=== PATIENT | male | born 1950 | race Caucasian/White ===

== ENCOUNTER → 2016-11-19 | Outpatient (CLI) | payer MEDICARE, OTHER ==
[2016-11-19 08:41] LABS: CHLORIDE,CL 107 mmol/L (98-110); SODIUM,NA 141 mmol/L (136-146)
== END ==
LOC: MW.CHFP 07:48
PROVIDERS: ATTEND Emergency Medicine
DX: I10 Essential (primary) hypertension (principal); E78.00 Pure hypercholesterolemia, unspecified; Z12.5 Encounter for screening for malignant neoplasm of prostate; D12.6 Benign neoplasm of colon, unspecified; Z23 Encounter for immunization
CPT/HCPCS: 36415; 80053; 80061; 90732; 99214; G0009; G0103

== ENCOUNTER → 2016-12-05 | Outpatient (CLI) | payer MEDICARE, OTHER | LOC: MW.CHGS 08:00 | PROVIDERS: ATTEND Surgery | DX: D12.6 Benign neoplasm of colon, unspecified (principal); Z86.010 Personal history of colon polyps; K57.30 Diverticulosis of large intestine without perforation or abscess without bleeding; I10 Essential (primary) hypertension | CPT/HCPCS: 99214 ==

== ENCOUNTER 2017-01-11 08:15 | Day surgery (SDC) | payer MEDICARE, OTHER ==
[~2017-01-11 08:15] MED LIST: Lactated Ringers 1,000 ML IV SCH; Midazolam 1 MG/ML 2 ML SDV ONE; Propofol 200 MG/20 ML SDV ONE; fentaNYL 100 MCG/2 ML SDV ONE
--- NOTE | 2017-01-11 08:52 | PCM.PREANE ---
Preanesthetic Assessment - Anesthesia/Transfusion/Family Hx Anesthesia History: Prior Anesthesia Without Reaction Family History of Anesthesia Reaction: No Transfusion History: No Prior Transfusion(s) - Review of Systems General: No Symptoms Pulmonary: No Symptoms Cardiovascular: No Symptoms Gastrointestinal: No symptoms Neurological: No Symptoms Other: Reports: None - Physical Assessment NPO Status Date: 01/10/17 O2 Sat by Pulse Oximetry: 97 Respiratory Rate: 16 Vital Signs: Last Vital Signs Temp 36.4 C 01/11/17 08:36 Pulse Resp 16 01/11/17 08:36 BP 143/79 H 01/11/17 08:36 Pulse Ox 97 01/11/17 08:36 Height: 1.7 m Weight: 96.162 kg ASA Class: 2 Mental Status: Alert & Oriented x3 Airway Class: Mallampati = 1 Dentition: Reports: Normal Dentition ROM/Head Extension: Full Lungs: Clear to auscultation, Normal respiratory effort Cardiovascular: Regular Rate, Regular Rhythm - Allergies Allergies/Adverse Reactions: Allergies Allergy/AdvReac Type Severity Reaction Status Date / Time No Known Allergies Allergy Verified 01/09/17 11:53 - Anesthesia Plan Pre-Op Medication Ordered: None - Acknowledgements Anesthesia Type Planned: MAC Pt an Appropriate Candidate for the Planned Anesthesia: Yes Alternatives and Risks of Anesthesia Discussed w Pt/Guardian: Yes Pt/Guardian Understands and Agrees with Anesthesia Plan: Yes Additional Comments: problem list: htn, hld PreAnesthesia Questionnaire Other HEENT History: wears glasses Cardiovascular History: Reports: High Cholesterol, Hypertension Respiratory History: Reports: None Gastrointestinal History: Reports: Colon Polyp, Diverticulosis Genitourinary History: Reports: None Musculoskeletal History: Reports: Arthritis Other Musculoskeletal History: hands Neurological History: Reports: None Psychiatric History: Reports: Depression Endocrine/Metabolic History: Reports: Obesity/BMI 30+ Hematologic History: Reports: None Immunologic History: Reports: None Oncologic (Cancer) History: Reports: None Dermatologic History: Reports: None - Past Surgical History Head Surgeries/Procedures: Reports: None HEENT Surgical History: Reports: None Cardiovascular Surgical History: Reports: None Respiratory Surgical History: Reports: None GI Surgical History: Reports: Colonoscopy, Hernia, Inguinal Male Surgical History: Reports: None Endocrine Surgical History: Reports: None Neurological Surgical History: Reports: None Musculoskeletal Surgical History: Reports: None Oncologic Surgical History: Reports: None Dermatological Surgical History: Reports: None - SUBSTANCE USE Smoking Status *Q: Never Smoker Recreational Drug Use History: No - HOME MEDS Home Medications: Home Meds Ascorbic Acid [Vitamin C] 1,000 mg PO DAILY 03/16/15 [History] Aspirin [[place] Aspirin] 81 mg PO DAILY 03/16/15 [History] Cyanocobalamin (Vitamin B12) [Vitamin B12] 1,000 mg PO DAILY 03/16/15 [History] Fish Oil/[place]-3 Fatty Acids [Fish Oil 1,000 MG] 1,000 mg PO BID 03/16/15 [ History] Folic Acid 800 mcg PO DAILY 03/16/15 [History] Lisinopril 10 mg PO DAILY 03/16/15 [History] Multivitamin [Multivitamins] 1 tab PO DAILY 03/16/15 [History] Sertraline HCl 100 mg PO DAILY 03/16/15 [History] Simvastatin [Zocor] 20 mg PO BEDTIME 03/16/15 [History] Vitamin E 400 units PO DAILY 03/16/15 [History] - CURRENT (IN HOUSE) MEDS Current Meds: Current Medications Lactated Ringer's (Ringers, Lactated) 1,000 mls @ 125 mls/hr IV ASDIRECTED RIVKA Last Admin: 01/11/17 08:38 Dose: 125 mls/hr Discontinued Medications Fentanyl (Sublimaze) Confirm Administered Dose 100 mcg .ROUTE .STK-MED ONE Stop: 01/11/17 06:59 Midazolam HCl (Versed 1 Mg/Ml) Confirm Administered Dose 2 mg .ROUTE .STK-MED ONE Stop: 01/11/17 06:59 Propofol (Diprivan 20 Ml) Confirm Administered Dose 400 mg .ROUTE .STK-MED ONE Stop: 01/11/17 06:59
--- NOTE | 2017-01-11 10:43 | PCM.OPNOTE ---
- General Post-Op/Procedure Note Date of Surgery/Procedure: 01/11/17 Operative Procedure(s): Colonoscopy Pre Op Diagnosis: Personal history of colon polyps Post-Op Diagnosis: Sigmoid diverticulosis Anesthesia Technique: MAC (ASA II) Primary Surgeon: Marcio London Condition: Good Free Text/Narrative:: Dictation [id number]
[2017-01-11] MEDS ORDERED: Lactated Ringers 1,000 ML IV SCH (10:45)
--- NOTE | 2017-01-11 10:51 | PCM.POSTAN ---
POST ANESTHESIA ASSESSMENT - MENTAL STATUS Mental Status: alert, oriented - RESPIRATORY Respiratory Status: respiratory rate WNL, airway patent, O2 saturation stable - CARDIOVASCULAR CV Status: pulse rate WNL, blood pressure stable - GASTROINTESTINAL GI Status: no symptoms - POST OP HYDRATION Hydration Status: adequate & stable
--- NOTE | 2017-01-11 11:03 | PCM48HPAN ---
Post Anesthesia Note - EVALUATION WITHIN 48HRS OF ANESTHETIC Vital Signs in Normal Range: Yes Patient Participated in Evaluation: Yes Respiratory Function Stable: Yes Airway Patent: Yes Cardiovascular Function Stable: Yes Hydration Status Stable: Yes Pain Control Satisfactory: Yes Nausea and Vomiting Control Satisfactory: Yes Mental Status Recovered: Yes
--- NOTE | 2017-01-11 12:17 | OR ---
SURGEON: Marcio London M.D. DATE OF PROCEDURE: 01/11/2017 OPERATION PERFORMED: Colonoscopy. ANESTHESIA: MAC. ASA CLASSIFICATION: II. PREOPERATIVE DIAGNOSIS: Personal history of colon polyps. POSTOPERATIVE DIAGNOSIS: Sigmoid diverticulosis. DESCRIPTION OF PROCEDURE: The patient was taken to the endoscopy room and positioned on the endoscopy table in the left lateral decubitus position. Time-out was called for appropriate identification of the patient and procedure. Monitored anesthesia care was provided. The colonoscope was inserted into the rectum and advanced with minimal difficulty to the cecum where the colonoscope was retroflexed to visualize the ascending colon from below. The colonoscope was then straightened and slowly withdrawn. The cecum, ascending colon, hepatic flexure, transverse colon, splenic flexure, and descending colon showed no tumors, polyps, diverticula, angiodysplasia, or evidence of inflammatory bowel disease. Sigmoid colon demonstrates moderate sigmoid diverticulosis. No stricture, spasm, or bleeding was noted. No polyps were encountered in the sigmoid colon. The colonoscope was withdrawn to the rectum and retroflexed to visualize the anal orifice from above. No tumors, polyps, or acute hemorrhoidal changes were noted. The colonoscope was straightened into the rectum, aspirated, and the colonoscope removed. The patient tolerated the procedure well and was taken to recovery room in stable condition. DANIELA / KATINA /[id number]
[2017-01-11 13:05] VITALS: BP 116/50
== END 2017-01-11 11:40 | disposition home or self-care (01) ==
LOC: MW.SDS 08:15
PROVIDERS: ATTEND Surgery
PROC: 0DJD8ZZ Inspection of Lower Intestinal Tract, Via Natural or Artificial Opening Endoscopic (ICD-10-PCS; principal; 2017-01-11)
DX: Z12.11 Encounter for screening for malignant neoplasm of colon (principal); K57.30 Diverticulosis of large intestine without perforation or abscess without bleeding; I10 Essential (primary) hypertension; E78.00 Pure hypercholesterolemia, unspecified; M19.90 Unspecified osteoarthritis, unspecified site; F32.9 Major depressive disorder, single episode, unspecified; Z86.010 Personal history of colon polyps; Z79.82 Long term (current) use of aspirin; Z79.899 Other long term (current) drug therapy; Z98.890 Other specified postprocedural states
CPT/HCPCS: G0105; J2250; J3010; J7120; J2704

== ENCOUNTER 2017-06-19 06:32 | Day surgery (SDC) | payer MEDICARE, OTHER ==
[~2017-06-19 06:32] MED LIST changes: -Midazolam 1 MG/ML 2 ML SDV ONE; -Propofol 200 MG/20 ML SDV ONE; +ceFAZolin 2 GM in Premix Bag 1 BAG IV SCH; -fentaNYL 100 MCG/2 ML SDV ONE
[2017-06-19] MEDS ORDERED: fentaNYL 100 MCG/2 ML SDV IVPUSH ONE (07:30)
[2017-06-19] MEDS ORDERED: fentaNYL 100 MCG/2 ML SDV ONE (07:35)
[2017-06-19] MEDS ORDERED: Succinylcholine/Normal Saline 200 MG/10 ML Syringe ONE (07:40)
[2017-06-19] MEDS ORDERED: Midazolam 1 MG/ML 2 ML SDV ONE (07:40)
[2017-06-19] MEDS ORDERED: Ondansetron 4 MG/2 ML SDV ONE (07:40)
[2017-06-19] MEDS ORDERED: diphenhydrAMINE 50 MG/ML SDV ONE (07:40)
[2017-06-19] MEDS ORDERED: Propofol 200 MG/20 ML SDV ONE (07:40)
[2017-06-19] MEDS ORDERED: Rocuronium 10 MG/ML 10 ML Syringe ONE (07:40)
[2017-06-19] MEDS ORDERED: Dexamethasone 4 MG/ML 5 ML MDV ONE (07:40)
[2017-06-19] MEDS ORDERED: fentaNYL 250 MCG/5 ML SDV ONE (07:40)
[2017-06-19] MEDS ORDERED: Lidocaine 2% 5 ML SDV ONE (07:40)
[2017-06-19] MEDS ORDERED: Mineral Oil/Petrolatum Ophth Oint 3.5 GM Tube ONE (07:43)
[2017-06-19] MEDS ORDERED: Acetaminophen/HYDROcodone 325-10 MG Tab PO PRN (08:00)
[2017-06-19] MEDS ORDERED: Ketorolac 10 MG Tab PO PRN (08:00)
[2017-06-19] MEDS ORDERED: ePHEDrine 50 MG/ML SDV ONE (08:25)
[2017-06-19] MEDS ORDERED: Phenylephrine 1% 10 MG/ML SDV ONE (08:26)
[2017-06-19] MEDS ORDERED: HYDROmorphone 2 MG/ML Syringe ONE (08:35)
[2017-06-19] MEDS ORDERED: Bupivacaine 0.5% 30 ML SDV ONE (09:43)
[2017-06-19] MEDS ORDERED: Bupivacaine 25%/EPINEPHrine/PF 30 ML ONE (09:43)
--- NOTE | 2017-06-19 09:51 | PCM.OPNOTE ---
- General Post-Op/Procedure Note Date of Surgery/Procedure: 06/19/17 Operative Procedure(s): L shoulder arthroscopy with SAD, extensive synovectomy including debridement of deg ant/post labral tear, biceps tenotomy, and RTCR Post-Op Diagnosis: L shoulder impingement, biceps tendonopathy, degenerative ant /post labral tear, RTC tear Anesthesia Technique: General ET Tube, Regional Block Primary Surgeon: Armida Reid Caving Guide: Leeanne Blackman in mLs: 10 Condition: Good Free Text/Narrative:: #
--- NOTE | 2017-06-19 10:24 | PCM.PREANE ---
Preanesthetic Assessment - Procedure Proposed Procedure: Left shoulder surgery - Anesthesia/Transfusion/Family Hx Anesthesia History: Prior Anesthesia Without Reaction Family History of Anesthesia Reaction: No Transfusion History: No Prior Transfusion(s) Intubation History: Unknown - Review of Systems General: Other (pain left shoulder) Pulmonary: No Symptoms Cardiovascular: Other (hypertension) Gastrointestinal: No Symptoms, Other (hx diverticulosis) Neurological: Other (pain in shoulder (L)) - Physical Assessment NPO Status Date: 06/18/17 NPO Status Time: 21:00 O2 Sat by Pulse Oximetry: 95 Respiratory Rate: 16 Vital Signs: Last Vital Signs Temp 98.2 F 06/19/17 07:25 Pulse 70 06/19/17 07:25 Resp 16 06/19/17 07:25 BP 134/79 06/19/17 07:25 Pulse Ox 95 06/19/17 07:25 Height: 5 ft 7 in Weight: 208 lb ASA Class: 2 Mental Status: Alert & Oriented x3 Airway Class: Mallampati = 1 Dentition: Reports: Normal Dentition Thyro-Mental Finger Breadths: 3 Mouth Opening Finger Breadths: 3 ROM/Head Extension: Limited/Partial Lungs: Clear to Auscultation, Normal Respiratory Effort Cardiovascular: Regular Rate, Regular Rhythm, No Murmurs - Allergies Allergies/Adverse Reactions: Allergies Allergy/AdvReac Type Severity Reaction Status Date / Time No Known Allergies Allergy Verified 06/18/17 10:32 - Blood Blood Available: No Product(s) Available: None - Anesthesia Plan Pre-Op Medication Ordered: Other (fentanyl for pain described) - Acknowledgements Anesthesia Type Planned: General Anesthesia, Regional Block (discussed probable interscalene block with eletrostim locater, agreed) Pt an Appropriate Candidate for the Planned Anesthesia: Yes Alternatives and Risks of Anesthesia Discussed w Pt/Guardian: Yes Pt/Guardian Understands and Agrees with Anesthesia Plan: Yes Additional Comments: present with exam interview and consent. PreAnesthesia Questionnaire Other HEENT History: wearsw glasses Cardiovascular History: Reports: Hypertension Respiratory History: Reports: None Gastrointestinal History: Reports: Colon Polyp, Diverticulosis Genitourinary History: Reports: None Musculoskeletal History: Reports: Arthritis Other Musculoskeletal History: hands Neurological History: Reports: None Psychiatric History: Reports: Depression Endocrine/Metabolic History: Reports: Obesity/BMI 30+ Hematologic History: Reports: None Immunologic History: Reports: None Oncologic (Cancer) History: Reports: None Dermatologic History: Reports: None - Past Surgical History Head Surgeries/Procedures: Reports: None HEENT Surgical History: Reports: None Cardiovascular Surgical History: Reports: None Respiratory Surgical History: Reports: None GI Surgical History: Reports: Colonoscopy, Hernia, Inguinal Male Surgical History: Reports: None Endocrine Surgical History: Reports: None Neurological Surgical History: Reports: None Musculoskeletal Surgical History: Reports: None Oncologic Surgical History: Reports: None Dermatological Surgical History: Reports: None - SUBSTANCE USE Smoking Status *Q: Never Smoker Other Tobacco Use Within Last Twelve Months: "cigar when I golf" Recreational Drug Use History: No - HOME MEDS Home Medications: Home Meds Ascorbic Acid [Vitamin C] 1,000 mg PO DAILY 03/16/15 [History] Aspirin [[place] Aspirin] 81 mg PO DAILY 03/16/15 [History] Cyanocobalamin (Vitamin B12) [Vitamin B12] 1,000 mg PO DAILY 03/16/15 [History] Fish Oil/[place]-3 Fatty Acids [Fish Oil 1,000 MG] 1,000 mg PO BID 03/16/15 [ History] Folic Acid 800 mcg PO DAILY 03/16/15 [History] Lisinopril 10 mg PO DAILY 03/16/15 [History] Multivitamin [Multivitamins] 1 tab PO DAILY 03/16/15 [History] Sertraline HCl 100 mg PO DAILY 03/16/15 [History] Simvastatin [Zocor] 20 mg PO BEDTIME 03/16/15 [History] Vitamin E 400 units PO DAILY 03/16/15 [History] Acetaminophen/HYDROcodone [[place] 325-10 MG] 1 - 2 tab PO Q4H PRN #80 tablet 09/04 [Rx] Ketorolac [Toradol] 10 mg PO Q6H #20 tablet 06/19/17 [Rx] - CURRENT (IN HOUSE) MEDS Current Meds: Current Medications Hydrocodone Bitart/Acetaminophen ([place] 325-10 Mg) 1 - 2 tab PO Q4H PRN PRN Reason: Pain Cefazolin Sodium/Dextrose 2 gm (/ Premix) 50 mls @ 100 mls/hr IV ONCALL RIVKA Lactated Ringer's (Ringers, Lactated) 1,000 mls @ 100 mls/hr IV ASDIRECTED RIVKA Ketorolac Tromethamine (Toradol) 10 mg PO Q6H PRN PRN Reason: Pain Stop: 06/24/17 08:01 Discontinued Medications Bupivacaine HCl (Marcaine 0.5%) Confirm Administered Dose 30 ml .ROUTE .STK-MED ONE Stop: 06/19/17 09:44 Dexamethasone (Dexamethasone) Confirm Administered Dose 20 mg .ROUTE .STK-MED ONE Stop: 06/19/17 07:41 Diphenhydramine HCl (Benadryl) Confirm Administered Dose 50 mg .ROUTE .STK-MED ONE Stop: 06/19/17 07:41 Ephedrine Sulfate (Ephedrine Sulfate) Confirm Administered Dose 50 mg .ROUTE .STK-MED ONE Stop: 06/19/17 08:26 Fentanyl (Sublimaze) 50 mcg IVPUSH ONETIME ONE Stop: 06/19/17 07:31 Fentanyl (Sublimaze) Confirm Administered Dose 100 mcg .ROUTE .STK-MED ONE Stop: 06/19/17 07:36 Fentanyl (Sublimaze) Confirm Administered Dose 250 mcg .ROUTE .STK-MED ONE Stop: 06/19/17 07:41 Hydromorphone HCl (Dilaudid) Confirm Administered Dose 2 mg .ROUTE .STK-MED ONE Stop: 06/19/17 08:36 Acetaminophen (Ofirmev) Confirm Administered Dose 100 mls @ as directed IV .STK- MED ONE Stop: 06/19/17 07:55 Bupivacaine HCl/Epinephrine Bitart (Sensorc Mpf 0.25%-Epi [id number]) Confirm Administered Dose 30 mls @ as directed .ROUTE .STK-MED ONE Stop: 06/19/17 09:44 Lidocaine (Xylocaine-Mpf 2%) Confirm Administered Dose 5 ml .ROUTE .STK-MED ONE Stop: 06/19/17 07:41 Midazolam HCl (Versed 1 Mg/Ml) Confirm Administered Dose 2 mg .ROUTE .STK-MED ONE Stop: 06/19/17 07:41 Mineral Oil/White Petrolatum ([place]-Lube S.O.P Oint) Confirm Administered Dose 3.5 gm .ROUTE .STK-MED ONE Stop: 06/19/17 07:44 Ondansetron HCl (Zofran) Confirm Administered Dose 4 mg .ROUTE .STK-MED ONE Stop: 06/19/17 07:41 Phenylephrine HCl ([place]-Synephrine) Confirm Administered Dose 10 mg .ROUTE .STK- MED ONE Stop: 06/19/17 08:27 Propofol (Diprivan 20 Ml) Confirm Administered Dose 200 mg .ROUTE .STK-MED ONE Stop: 06/19/17 07:41 Rocuronium [place] (Zemuron) Confirm Administered Dose 100 mg .ROUTE .STK-MED ONE Stop: 06/19/17 07:41 Succinylcholine Chloride (Succinylcholine In Ns Pf) Confirm Administered Dose 200 mg .ROUTE .STK-MED ONE Stop: 06/19/17 07:41
--- NOTE | 2017-06-19 10:27 | PCM.SN ---
- Free Text/Narrative Note: Interscalene on left blocked with 0.375% marcaine(37 ml). done in the emergence period under sterile conditions in OR. electrostim twitch elicited, injection done with negative aspiration (also negative for needle placement). emergence then completed and taken to PAR.
--- NOTE | 2017-06-19 11:08 | PCM.POSTAN ---
POST ANESTHESIA ASSESSMENT - MENTAL STATUS Mental Status: Alert, Oriented - RESPIRATORY Respiratory Status: Respiratory Rate WNL, Airway Patent, O2 Saturation Stable - CARDIOVASCULAR CV Status: Pulse Rate WNL, Blood Pressure Stable - GASTROINTESTINAL GI Status: No Symptoms - PAIN Pain Score: 0 (interscalene block active) - POST OP HYDRATION Hydration Status: Adequate & Stable
--- NOTE | 2017-06-19 12:37 | PCM48HPAN ---
Post Anesthesia Note - EVALUATION WITHIN 48HRS OF ANESTHETIC Vital Signs in Normal Range: Yes Patient Participated in Evaluation: Yes Respiratory Function Stable: Yes Airway Patent: Yes Cardiovascular Function Stable: Yes Hydration Status Stable: Yes Pain Control Satisfactory: Yes (remains sleepy with solid interscalene block pain relief) Nausea and Vomiting Control Satisfactory: Yes Mental Status Recovered: Yes - COMMENTS/OBSERVATIONS Free Text/Narrative:: to go home with soon.
[2017-06-19 15:07] VITALS: BP 131/76
--- NOTE | 2017-06-20 13:17 | OR ---
SURGEON: Armida Reid MD DATE OF PROCEDURE: 06/19/2017 PREOPERATIVE DIAGNOSES: 1. Left shoulder impingement syndrome. 2. Left shoulder biceps tendinopathy. 3. Left shoulder rotator cuff tear. POSTOPERATIVE DIAGNOSES: 1. Left shoulder impingement syndrome. 2. Left shoulder biceps tendinopathy. 3. Left shoulder rotator cuff tear. 4. Left shoulder anterior and posterior degenerative labrum tear. PROCEDURE: Left shoulder arthroscopy with: 1. Subacromial decompression with release of coracoacromial ligament and acromioplasty. 2. Extensive synovectomy including biceps tenotomy and debridement of the anterior and posterior labrum. 3. Left shoulder arthroscopic rotator cuff repair. CRITICAL CARE CNS: Leeanne Blackman PA-C. ANESTHESIA: General. Interscalene block was placed at the completion of the procedure. ESTIMATED BLOOD LOSS: 5 mL. TOURNIQUET TIME: 0 minutes. COMPLICATIONS: None. DVT PROPHYLAXIS: PAS boots to bilateral lower extremities. IMPLANTS USED: Two 4.5 mm Arthrex corkscrew anchors ([employer]) and one Arthrex 4.75 SwiveLock anchor ([employer]). BRIEF HISTORY: Mr. London is a 66-year-old male, who sustained a fall on a piano bench. He has had complaint of left shoulder pain since that time. An MRI did confirm a tear of the rotator cuff. Due to his lack of response to conservative treatment, I did recommend surgical intervention. The risks and goals of the procedure were discussed with the patient and were documented preoperatively. He agreed to proceed. DESCRIPTION OF PROCEDURE: The patient was properly identified and brought to the operating room. He was transferred from the OR cart and placed on the operating table in a supine position. General anesthesia was administered. After adequate anesthesia was obtained, the patient was placed into a beach-chair position. Care was taken to pad all bony prominences. His head was secured. The left upper extremity was then prepped in standard fashion using ChloraPrep solution. It was then sterilely draped. A time-out was performed to ensure correct site and procedure. Preoperative antibiotics were given. The surgical site had been marked preoperatively. Bony landmarks were then identified with a marking pen. Approximately 30 mL of normal saline was introduced into the glenohumeral joint. A posterior portal was established. Blunt trocar and cannula were introduced into the glenohumeral joint. Camera, inflow, and outflow were assembled. The biceps was visualized. It was found to be quite degenerative looking with extensive tearing. I did establish an anterior portal. He did have some synovitis in the rotator cuff interval, which was resected. A split tear of the subscapularis was also noted. This was probed. The attachment appeared intact. The tear was gently debrided. No loose bodies were identified in the subscapular recess. The biceps was then further inspected. It was pulled into the joint. The longitudinal splits extended distally into the tendon. I elected to proceed with a biceps tenotomy. This was performed with electrocautery without difficulty. The biceps tendon retracted easily into the bicipital tendon sheath. The attachment site was contoured. I then inspected the labrum. He was found to have degenerative fraying of both the anterior and posterior labrum. Electrocautery was used to resect this to a stable remnant. No further catching was noted. The articular cartilage on both the glenoid and humeral head was intact and showed no evidence of degenerative wear. I then entered the axillary pouch. No loose bodies were identified. Mild synovitis was noted. The arm was then brought into an abducted and externally rotated position. The bare area was noted posteriorly. As I progressed forward, a full-thickness tear of the supraspinatus was noted. The instruments were then removed from the glenohumeral joint. The arm was brought back into a neutral position. I then entered the subacromial space. Again camera, inflow, and outflow were assembled. There was some mild bursitis present in the subacromial space. A lateral portal was established and a subacromial decompression was performed. The coracoacromial ligament was released off the anterior aspect of the acromion. A 5.0 mm ellen was then used to perform an acromioplasty. This was performed without any difficulty. We had good decompression of the space at the completion. The rotator cuff was then inspected. A crescentic tear was noted along the anterior aspect of the supraspinatus. A cuff grasper was used to pull the cuff over. It easily reapproximated to the footprint. A 5.0 mm ellen was then used to perform the acromioplasty. This provided good decompression of the subacromial space. I also used the ellen to roughen the area of attachment just lateral to the articular cartilage. Two corkscrew anchors were then placed in usual fashion. Sutures were passed through the cuff. The cuff appeared quite robust. The sutures were passed in an anterior to posterior fashion and were tied in a posterior to anterior fashion. This provided good reapproximation of the cuff to the bone. The repair site was then probed. There was some lifting of the lateral edge of the rotator cuff and I elected to proceed with a SwiveLock. A 4.75 SwiveLock anchor was placed laterally incorporating the sutures from the repair. This was tapped and screwed into place. The tear was again probed. The sutures provided good compression over the lateral aspect of the cuff repair. Suture ends were then cut. The instruments were removed from the shoulder. A 3- 0 nylon was used to reapproximate the wound edges. Xeroform gauze was placed over the wound and a bulky dressing was applied. He was awakened from his anesthetic. At the completion of the case, he was turned over to Anesthesia for postoperative placement of the interscalene block. MARTHA / KATINA /[id number]
== END 2017-06-19 13:50 | disposition home or self-care (01) ==
LOC: MW.SDS 06:32
PROVIDERS: ATTEND Orthopaedic Surgery
DX: M75.42 Impingement syndrome of left shoulder (principal); M75.22 Bicipital tendinitis, left shoulder; M75.122 Complete rotator cuff tear or rupture of left shoulder, not specified as traumatic; M65.812 Other synovitis and tenosynovitis, left shoulder; S43.492A Other sprain of left shoulder joint, initial encounter; M19.012 Primary osteoarthritis, left shoulder; F32.9 Major depressive disorder, single episode, unspecified; I10 Essential (primary) hypertension; E78.00 Pure hypercholesterolemia, unspecified; E66.9 Obesity, unspecified; Z86.010 Personal history of colon polyps; Z79.82 Long term (current) use of aspirin; Z79.899 Other long term (current) drug therapy; Z98.890 Other specified postprocedural states; Z68.34 Body mass index [BMI] 34.0-34.9, adult
CPT/HCPCS: 29823; 29826; 29827; 88304; C1713; J1100; J1170; J1200; J2250; J2370; J2405; J3010; 01630; 64415; J2704

== ENCOUNTER 2018-12-03 06:48 | Day surgery (SDC) | payer MEDICARE, OTHER ==
[2018-12-03] MEDS ORDERED: Bupivacaine 0.25%/EPINEPHrine 1:200,000 10 ML SDV ONE (07:19)
--- NOTE | 2018-12-03 07:46 | PCM.PREANE ---
Preanesthetic Assessment - Anesthesia/Transfusion/Family Hx Anesthesia History: Prior Anesthesia Without Reaction Family History of Anesthesia Reaction: No Transfusion History: No Prior Transfusion(s) Intubation History: Unknown - Review of Systems General: No Symptoms Pulmonary: No Symptoms Cardiovascular: No Symptoms Gastrointestinal: No Symptoms Neurological: No Symptoms Other: Reports: None - Physical Assessment NPO Status Date: 12/02/18 Height: 5 ft 7 in Weight: 89.358 kg ASA Class: 2 Mental Status: Alert & Oriented x3 Airway Class: Mallampati = 2 Dentition: Reports: Normal Dentition ROM/Head Extension: Full Lungs: Clear to Auscultation, Normal Respiratory Effort Cardiovascular: Regular Rate, Regular Rhythm - Allergies Allergies/Adverse Reactions: Allergies Allergy/AdvReac Type Severity Reaction Status Date / Time No Known Allergies Allergy Verified 12/01/18 11:24 - Blood Blood Available: No - Anesthesia Plan Pre-Op Medication Ordered: None - Acknowledgements Anesthesia Type Planned: MAC Pt an Appropriate Candidate for the Planned Anesthesia: Yes Alternatives and Risks of Anesthesia Discussed w Pt/Guardian: Yes Pt/Guardian Understands and Agrees with Anesthesia Plan: Yes Additional Comments: PMH: htn, hld PLAN: mac PreAnesthesia Questionnaire HEENT History: Reports: Other (See Below) Other HEENT History: wears glasses Cardiovascular History: Reports: High Cholesterol, Hypertension Respiratory History: Reports: None Gastrointestinal History: Reports: Colon Polyp, Diverticulosis Genitourinary History: Reports: None Musculoskeletal History: Reports: Arthritis Other Musculoskeletal History: hands Neurological History: Reports: None Psychiatric History: Reports: Depression Endocrine/Metabolic History: Reports: Obesity/BMI 30+ Hematologic History: Reports: None Immunologic History: Reports: None Oncologic (Cancer) History: Reports: None Dermatologic History: Reports: None - Past Surgical History HEENT Surgical History: Reports: Other (See Below) Other HEENT Surgeries/Procedures: excision of forehead lesion GI Surgical History: Reports: Colonoscopy, Hernia, Inguinal Dermatological Surgical History: Reports: Skin Biopsy - SUBSTANCE USE Smoking Status *Q: Current Some Day Smoker Tobacco Use Within Last Twelve Months: Cigars Recreational Drug Use History: No - HOME MEDS Home Medications: Home Meds Ascorbic Acid [Vitamin C] 1,000 mg PO DAILY 03/16/15 [History] Aspirin [[place] Aspirin EC] 81 mg PO DAILY 03/16/15 [History] Cyanocobalamin (Vitamin B12) [Vitamin B12] 1,000 mcg PO DAILY 03/16/15 [History] Fish Oil/[place]-3 Fatty Acids [Fish Oil 1,000 MG] 1,200 mg PO BID 03/16/15 [ History] Folic Acid 800 mcg PO DAILY 03/16/15 [History] Lisinopril 10 mg PO DAILY 03/16/15 [History] Multivitamin [Multivitamins] 1 tab PO DAILY 03/16/15 [History] Sertraline HCl 100 mg PO DAILY 03/16/15 [History] Simvastatin [Zocor] 20 mg PO BEDTIME 03/16/15 [History] Vitamin E 400 units PO DAILY 03/16/15 [History] Vitamin B6-pyridOXINE 100 mg PO DAILY 11/27/18 [History] - CURRENT (IN HOUSE) MEDS Current Meds: Current Medications Bupivacaine HCl/Epinephrine Bitart (Marcaine 0.25%/Epinephrine 1:200,000) 10 ml INJECT ONETIME ONE Stop: 12/03/18 08:01 Cefazolin Sodium/Dextrose 2 gm (/ Premix) 50 mls @ 100 mls/hr IV ONETIME ONE Stop: 12/03/18 08:29 Lactated Ringer's (Ringers, Lactated) 1,000 mls @ 125 mls/hr IV ASDIRECTED RIVKA Discontinued Medications Bupivacaine HCl/Epinephrine Bitart (Marcaine 0.25%/Epinephrine 1:200,000) Confirm Administered Dose 10 ml .ROUTE .STK-MED ONE Stop: 12/03/18 07:20
[2018-12-03] MEDS ORDERED: Bupivacaine 0.25%/EPINEPHrine 1:200,000 10 ML SDV INJECT ONE (08:00)
[2018-12-03] MEDS ORDERED: Lactated Ringers 1,000 ML IV SCH (08:00)
[2018-12-03] MEDS ORDERED: ceFAZolin 2 GM in Premix Bag 1 BAG IV ONE (08:00)
[2018-12-03] MEDS ORDERED: fentaNYL 100 MCG/2 ML SDV ONE (08:21)
[2018-12-03] MEDS ORDERED: Propofol 200 MG/20 ML SDV ONE (08:21)
[2018-12-03] MEDS ORDERED: Midazolam 1 MG/ML 2 ML SDV ONE (08:46)
[2018-12-03] MEDS ORDERED: ceFAZolin/Dextrose,Iso-Osmotic 2 GM/50 ML Duplex Bag IV ONE (08:47)
[2018-12-03 11:50] VITALS: BP 120/59
--- NOTE | 2018-12-03 12:01 | PCM.POSTAN ---
POST ANESTHESIA ASSESSMENT - MENTAL STATUS Mental Status: Alert, Oriented - RESPIRATORY Respiratory Status: Respiratory Rate WNL, Airway Patent, O2 Saturation Stable - CARDIOVASCULAR CV Status: Pulse Rate WNL, Blood Pressure Stable - GASTROINTESTINAL GI Status: No Symptoms - POST OP HYDRATION Hydration Status: Adequate & Stable
--- NOTE | 2018-12-03 12:02 | PCM48HPAN ---
Post Anesthesia Note - EVALUATION WITHIN 48HRS OF ANESTHETIC Vital Signs in Normal Range: Yes Patient Participated in Evaluation: Yes Respiratory Function Stable: Yes Airway Patent: Yes Cardiovascular Function Stable: Yes Hydration Status Stable: Yes Pain Control Satisfactory: Yes Nausea and Vomiting Control Satisfactory: Yes Mental Status Recovered: Yes Resp Rate: 18
--- NOTE | 2018-12-04 08:15 | PCM.OPNOTE ---
- General Post-Op/Procedure Note Date of Surgery/Procedure: 12/03/18 Operative Procedure(s): reexcision of left forehead lentigo maligna with 0.5cm margins - total size 5x3cm with intermediate repair of 3cm and full thickness skin graft from the left chest 2x1cm to copmlete the closure Pre Op Diagnosis: left forehead lentigo maligna Post-Op Diagnosis: Same Anesthesia Technique: Local, MAC Primary Surgeon: Rossy Quinteros Loading Machine Operator Helper: Melany Stratton Complications: None Condition: Good
--- NOTE | 2018-12-05 08:27 | OR ---
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 PROCEDURES: 1. Revision of left forehead lentigo maligna, 0.5 cm margins, total size of excision is 5 x 3 cm. 2. Intermediate repair 3 cm of this. 3. Full-thickness skin graft in the left chest with 2 x 1 cm to complete the closure. HABILITATION TRAINING SPECIALIST: CRICKET Tinsley. REASON FOR AND ROLE OF HABILITATION TRAINING SPECIALIST: Retraction, prepping, draping, positioning and closure assistance. ANESTHESIA: Local MAC. INDICATIONS: Mr. London is a 68-year-old gentleman seen today in evaluation for left forehead lentigo maligna. Unfortunately, the margins are close, and we discussed the standard treatment for this lesion. Risks and benefits were discussed with him including, but not limited to, bleeding, infection, damage to underlying or overlying structures, possible need for future interventions, and possible scarring. He also understands this has a very high recurrence rate. We did discuss with him treatment options, and he would like to proceed with re- excision. All questions answered. PROCEDURE IN DETAIL: After informed consent was obtained and placed on the chart, the patient was brought to the operating theater and laid in supine position. After adequate 0.5 cm margins were marked around the previous scar, the area was prepped and draped in a normal fashion, and time-out was completed to confirm side and site. After marked, attention was paid to re-excision with 0.5 cm margins for a total length of 5 x 3 cm. Once adequately excised, marked at 12 o'clock position and sent for pathology. Once this was completed, attention was then paid to copious irrigation, meticulous hemostasis, and attempted primary closure. We were able to close approximately 3 cm of this, but unfortunately the central area was far too tight. We had previously discussed with him flap versus graft, and considering the high recurrence of lentigo maligna, I would opt for graft in this situation with rearrangement of tissues. He does understand. The left chest area was prepped in the normal fashion with Betadine. After adequate anesthesia with 0.25% Marcaine with epinephrine, a small elliptical 2 x 1 cm graft was taken to complete the closure. This was placed and sutured using a 5-0 chromic stitch. Once placed, small pressure dressing was placed over the site, and then the patient tolerated the procedure well. All counts and needles were correct at the end of the case. FOLLOWUP INSTRUCTIONS: The patient will see us in approximately 1 week, sooner if any problems, questions, or concerns. He will leave the dressing in place until then. He was given tramadol for pain control as needed. HEGGTHE / MODL /[id number]
== END 2018-12-03 10:50 | disposition home or self-care (01) ==
LOC: MW.SDS 06:48
PROVIDERS: ATTEND Plastic Surgery
DX: D03.39 Melanoma in situ of other parts of face (principal); I10 Essential (primary) hypertension; E78.00 Pure hypercholesterolemia, unspecified; F17.290 Nicotine dependence, other tobacco product, uncomplicated; M19.90 Unspecified osteoarthritis, unspecified site; R73.03 Prediabetes; Z79.82 Long term (current) use of aspirin; Z79.899 Other long term (current) drug therapy
CPT/HCPCS: 11646; 15240; 88305; J0690; J2250; J2704; J3010; J3490; J7120; 00300

== ENCOUNTER 2020-11-10 07:19 | Day surgery (SDC) | payer MEDICARE ==
[~2020-11-10 07:19] MED LIST changes: +Acetaminophen 1,000 MG in Premix Bag 1 BAG IV ONE; +ceFAZolin 2 GM in Premix Bag 1 BAG IV ONE; -ceFAZolin 2 GM in Premix Bag 1 BAG IV SCH
--- NOTE | 2020-11-10 08:09 | PCM.PREANE ---
Preanesthetic Assessment - Anesthesia/Transfusion/Family Hx Anesthesia History: Prior Anesthesia Without Reaction Family History of Anesthesia Reaction: No Transfusion History: No Prior Transfusion(s) Intubation History: Unknown - Review of Systems General: No Symptoms Pulmonary: No Symptoms Cardiovascular: No Symptoms Gastrointestinal: No Symptoms Neurological: No Symptoms Other: Reports: None - Physical Assessment Vital Signs: Last Vital Signs Temp 36.3 C 11/10/20 07:25 Pulse 84 11/10/20 07:25 Resp 16 11/10/20 07:25 BP 130/75 11/10/20 07:25 Pulse Ox 95 11/10/20 07:25 Height: 5 ft 7 in Weight: 96.162 kg ASA Class: 2 Mental Status: Alert & Oriented x3 Airway Class: Mallampati = 2 Dentition: Reports: Normal Dentition Thyro-Mental Finger Breadths: 3 Mouth Opening Finger Breadths: 3 ROM/Head Extension: Full Lungs: Clear to Auscultation, Normal Respiratory Effort Cardiovascular: Regular Rate, Regular Rhythm - Allergies Allergies/Adverse Reactions: Allergies Allergy/AdvReac Type Severity Reaction Status Date / Time No Known Allergies Allergy Verified 11/04/20 09:08 - Blood Blood Available: No - Anesthesia Plan Pre-Op Medication Ordered: None - Acknowledgements Anesthesia Type Planned: General Anesthesia Pt an Appropriate Candidate for the Planned Anesthesia: Yes Alternatives and Risks of Anesthesia Discussed w Pt/Guardian: Yes Pt/Guardian Understands and Agrees with Anesthesia Plan: Yes PreAnesthesia Questionnaire HEENT History: Reports: Other (See Below) Other HEENT History: wears glasses Cardiovascular History: Reports: High Cholesterol, Hypertension Respiratory History: Reports: None Gastrointestinal History: Reports: Colon Polyp, Diverticulosis Genitourinary History: Reports: None Musculoskeletal History: Reports: Arthritis Other Musculoskeletal History: hands Neurological History: Reports: None Psychiatric History: Reports: Depression Endocrine/Metabolic History: Reports: Obesity/BMI 30+ (BMI 33.2), Other (See Below) (prediabetes) Hematologic History: Reports: None Immunologic History: Reports: None Oncologic (Cancer) History: Reports: None Dermatologic History: Reports: None - Past Surgical History Head Surgeries/Procedures: Reports: None HEENT Surgical History: Reports: Other (See Below) Other HEENT Surgeries/Procedures: excision of forehead lesion Cardiovascular Surgical History: Reports: None Respiratory Surgical History: Reports: None GI Surgical History: Reports: Colonoscopy, Hernia, Inguinal Male Surgical History: Reports: None, Vasectomy Endocrine Surgical History: Reports: None Neurological Surgical History: Reports: None Musculoskeletal Surgical History: Reports: None, Shoulder Surgery (left shoulder rotator cuff repair) Oncologic Surgical History: Reports: None Dermatological Surgical History: Reports: Skin Biopsy - SUBSTANCE USE Tobacco Use Status *Q: Current Some Day Tobacco User Tobacco Use Within Last Twelve Months: Cigars Recreational Drug Use History: No - HOME MEDS Home Medications: Home Meds Ascorbic Acid [Vitamin C] 1,000 mg PO DAILY 03/16/15 [History] Aspirin [[place] Aspirin EC] 81 mg PO DAILY 03/16/15 [History] Cyanocobalamin (Vitamin B12) [Vitamin B12] 1,000 mcg PO DAILY 03/16/15 [History] Fish Oil/[place]-3 Fatty Acids [Fish Oil 1,000 MG] 1,200 mg PO BID 03/16/15 [History] Folic Acid 800 mcg PO DAILY 03/16/15 [History] Lisinopril 10 mg PO DAILY 03/16/15 [History] Multivitamin [Multivitamins] 1 tab PO DAILY 03/16/15 [History] Sertraline HCl 100 mg PO DAILY 03/16/15 [History] Simvastatin [Zocor] 20 mg PO BEDTIME 03/16/15 [History] Vitamin E 400 units PO DAILY 03/16/15 [History] Vitamin B6-pyridOXINE 100 mg PO DAILY 11/27/18 [History] - CURRENT (IN HOUSE) MEDS Current Meds: Current Medications Lactated Ringer's (Ringers, Lactated) 1,000 mls @ 125 mls/hr IV ASDIRECTED RIVKA Pregabalin (Pregabalin 75 Mg Cap) 150 mg PO DAILY RIVKA Discontinued Medications Cefazolin Sodium/Dextrose 2 gm (/ Premix) 50 mls @ 100 mls/hr IV ONETIME ONE Stop: 11/09/20 13:44 Acetaminophen 1,000 mg/ Premix 100 mls @ 400 mls/hr IV NOW ONE Stop: 11/09/20 13:32
[2020-11-10] MEDS ORDERED: fentaNYL 250 MCG/5 ML SDV ONE (08:17)
[2020-11-10] MEDS ORDERED: Propofol 200 MG/20 ML SDV ONE (08:17)
[2020-11-10] MEDS ORDERED: Midazolam 1 MG/ML 2 ML SDV ONE (08:17)
[2020-11-10] MEDS ORDERED: Ondansetron 4 MG/2 ML SDV ONE (08:18)
[2020-11-10] MEDS ORDERED: Lidocaine 2% 5 ML SDV ONE (08:18)
[2020-11-10] MEDS ORDERED: Ketorolac 30 MG/ML SDV ONE (08:18)
[2020-11-10] MEDS ORDERED: Rocuronium Bromide 50 MG/5 ML Syringe ONE ×2 (08:18→10:20)
[2020-11-10] MEDS ORDERED: Glycopyrrolate 0.2 MG/ML SDV ONE (08:18)
[2020-11-10] MEDS ORDERED: ceFAZolin 1 GM Vial ONE (08:35)
[2020-11-10] MEDS ORDERED: Sodium Chloride 0.9% 20 ML ONE (08:35)
[2020-11-10] MEDS ORDERED: Bupivacaine 0.5% 30 ML SDV ONE (08:41)
[2020-11-10] MEDS ORDERED: Bupivacaine 25%/EPINEPHrine/PF 0 ML ONE (08:41)
[2020-11-10] MEDS ORDERED: Octyl 2-Cyanoacrylate 1 Tube ONE (08:41)
[2020-11-10] MEDS ORDERED: Pregabalin 75 MG Cap PO SCH (09:00)
[2020-11-10] MEDS ORDERED: fentaNYL 100 MCG/2 ML SDV ONE ×2 (10:03→11:17)
[2020-11-10] MEDS ORDERED: HYDROmorphone 2 MG/ML Syringe IVPUSH PRN (11:29)
[2020-11-10] MEDS ORDERED: Ondansetron 4 MG/2 ML SDV IVPUSH PRN (11:29)
[2020-11-10] MEDS ORDERED: Acetaminophen/HYDROcodone 325-5 MG Tab PO PRN (11:29)
--- NOTE | 2020-11-10 11:29 | PCM.OPNOTE ---
- General Post-Op/Procedure Note Date of Surgery/Procedure: 11/10/20 Operative Procedure(s): Laparoscopic right inguinal hernia repair Findings: large right direct inguinal hernia dictation number [id number] Pre Op Diagnosis: Right inguinal hernia Post-Op Diagnosis: Right direct inguinal hernia Anesthesia Technique: General LMA Primary Surgeon: Sarwat Taylor Pathology: none EBL in mLs: 10 Complications: None Condition: Good
--- NOTE | 2020-11-10 12:16 | PCM.POSTAN ---
POST ANESTHESIA ASSESSMENT - MENTAL STATUS Mental Status: Alert, Oriented - VITAL SIGNS Vital Signs: Last Vital Signs Temp 36.2 C 11/10/20 11:33 Pulse 84 11/10/20 12:07 Resp 12 11/10/20 12:07 BP 115/55 L 11/10/20 12:07 Pulse Ox 95 11/10/20 12:07 - RESPIRATORY Respiratory Status: Respiratory Rate WNL, Airway Patent, O2 Saturation Stable - CARDIOVASCULAR CV Status: Pulse Rate WNL, Blood Pressure Stable - GASTROINTESTINAL GI Status: No Symptoms - PAIN Pain Score: 0 - POST OP HYDRATION Hydration Status: Adequate & Stable - OBSERVATIONS Free Text/Narrative:: No anesthesia problems
[2020-11-10] MEDS ORDERED: Simvastatin 20 MG Tab PO SCH (21:00)
[2020-11-11 07:26] VITALS: BP 134/87; PULSE 75
--- NOTE | 2020-11-11 07:58 | PCM48HPAN ---
Post Anesthesia Note - EVALUATION WITHIN 48HRS OF ANESTHETIC Vital Signs in Normal Range: Yes Patient Participated in Evaluation: Yes Respiratory Function Stable: Yes Airway Patent: Yes Cardiovascular Function Stable: Yes Hydration Status Stable: Yes Pain Control Satisfactory: Yes Nausea and Vomiting Control Satisfactory: Yes Mental Status Recovered: Yes Vital Signs: Last Vital Signs Temp 36.4 C 11/11/20 07:25 Pulse 75 11/11/20 07:25 Resp 20 11/11/20 07:25 BP 134/87 11/11/20 07:25 Pulse Ox 95 11/11/20 07:25 - COMMENTS/OBSERVATIONS Free Text/Narrative:: up walking around ready for discharge
--- NOTE | 2020-11-11 08:05 | OR ---
SURGEON: JOANA JONES MD DATE OF PROCEDURE: 11/10/2020 PREOPERATIVE DIAGNOSIS: Right inguinal hernia. POSTOPERATIVE DIAGNOSIS: Large right direct inguinal hernia. PROCEDURE PERFORMED: Laparoscopic right inguinal hernia repair. PRIMARY SURGEON: Joana Jones MD TRIM MECHANIC: Elbert Forte, [employer] 2nd year assistant professor surgical technology. ESTIMATED BLOOD LOSS: 10 mL. ANESTHESIA: General. SPECIMENS: None. REASON FOR PROCEDURE: The patient is a pleasant 70-year-old gentleman who has had a right inguinal hernia, starting to bother him. The patient originally said that he had a right inguinal hernia, we opened done in the past. However, when the patient was being prepped and was shaved, it looks like the inguinal incision is actually on the left side. I did go over with the patient that we will look on the left side at the same time and see if there are multiple defects that we need to repair on that side also. The patient understands and wishes to proceed. I did go over with the patient risks, goals, and alternatives of procedure. Risks include, but not limited to, need to convert to open, bleeding, mesh infection, infection, injuring to spermatic cord, injury to testicle, injury recurrence, hematoma, seroma, nerve entrapment, chronic pain. The patient understands and wishes to proceed. DESCRIPTION OF PROCEDURE: The patient was brought back to the OR. He was prepped and draped in usual fashion. SCDs were placed. Martin catheter was placed. Preoperative antibiotics were given and anesthesia was provided by the Anesthesia team. Time-out was performed. A curvilinear infraumbilical incision was made. This was carried down to the external rectus sheath, which was incised. The underlying rectus muscle was atraumatically split down to the posterior rectus sheath. Balloon dissecting system was placed into the level of the pubic symphysis and it was begun to insufflate under visualization. However, when we started to insufflate the balloon, we were not in the preperitoneal space, we were actually in the abdominal space, so the balloon dissecting system was removed. We did move to the other side of the curvilinear incision and made another incision in the anterior rectus sheath. The underlying rectus muscle was again atraumatically split down to the posterior rectus sheath. An another balloon dissecting system was placed down to the pubic symphysis and insufflated at this time under direct visualization. At this time, it was in a proper position. The preperitoneal space was made. The balloon dissecting system was removed and a Caleb trocar was placed and insufflation began and the preperitoneal pneumo was established. Now, two 5.0 trocars were placed under direct visualization in the center midline position. The patient did have a fairly large right direct inguinal hernia. This was reduced, appeared to be mainly fat-containing. Now, the lateral wall was then cleared and the spinal cord was inspected. There was a good peritoneal reflection. There did not appear to be any indirect hernia. I did take some time to fully reduce the direct inguinal hernia, this was scarred in, and to make sure there were no other lead or attachments, but this was completely dissected out with a good peritoneal reflection. Now, a large 3DMax MID mesh was placed, laid in good position in the preperitoneal space. It was tacked with absorbable tacker and indurated above the periosteum of Reynaldo's ligament once laterally and once superiorly and make sure not to go into any of the epigastric, vascular, or psoas muscle to avoid any vascular or nerve injury. The mesh was tucked underneath the peritoneal reflection. The mesh did appear to have good coverage even over the larger direct hernia defect. Now, attention was brought over to the left side. There did not appear to be a direct inguinal hernia on this side to be good reflection, so no indirect hernia either, so no mesh was placed on the left side. Preperitoneal pneumo was then released under direct visualization. The 5 mm trocars were removed. The Caleb trocar was removed. The patient did have a little bit of air in his abdominal cavity, so Angiocath was placed to release this pneumoperitoneum. Now, both the anterior fascial incisions were closed with looped 0 Vicryl. All the port sites were again injected with Exparel and closed with 4-0 Monocryl and Dermabond. At the end of the case, sponge and needle counts were correct and both testicles were in the scrotum. The patient was transferred to recovery room in stable condition. He will be kept as an outpatient, but overnight since he has no home. HANNAH / KATINA /[id number]
[2020-11-11] MEDS ORDERED: Lisinopril 10 MG Tab PO SCH (09:00)
[2020-11-11] MEDS ORDERED: Sertraline 100 MG Tab PO SCH (09:00)
== END 2020-11-11 09:16 | disposition home or self-care (01) ==
LOC: MW.SDS 07:19 → MW.MS 11:45 → MW.SDS 11-11 09:16
PROVIDERS: ATTEND Surgery
DX: K40.90 Unilateral inguinal hernia, without obstruction or gangrene, not specified as recurrent (principal); I10 Essential (primary) hypertension; E78.00 Pure hypercholesterolemia, unspecified; R73.03 Prediabetes; Z79.82 Long term (current) use of aspirin; Z79.899 Other long term (current) drug therapy; Z98.890 Other specified postprocedural states
CPT/HCPCS: 49505; A9270; C1781; J0131; J0690; J1885; J2250; J2704; J3010; J3490; J7120; 00840; J2405

== ENCOUNTER 2020-12-12 15:10 | Observation (INO) | payer MEDICARE ==
[2020-12-12] MEDS ORDERED: LORazepam 2 MG/ML SDV IVPUSH ONE ×2 (15:18→15:22)
[2020-12-12] MEDS ORDERED: Sodium Chloride 0.9% 1,000 ML IV ONE ×2 (15:18→16:06)
[2020-12-12] MEDS ORDERED: Sodium Chloride 0.9% 10 ML Syringe FLUSH PRN (15:20)
[2020-12-12] MEDS ORDERED: Sodium Chloride 0.9% 2.5 ML Syringe FLUSH PRN (15:20)
[2020-12-12] MEDS ORDERED: Sodium Chloride 0.9% 10 ML SDV IV PRN (15:20)
--- NOTE | 2020-12-12 15:23 | EDM.PDOC ---
ED HPI GENERAL MEDICAL PROBLEM - General Chief Complaint: Neurological Problem Stated Complaint: Seizure Time Seen by Provider: 12/12/20 15:22 Source of Information: Reports: Provider, RN History Limitations: Reports: Altered Mental Status - History of Present Illness INITIAL COMMENTS - FREE TEXT/NARRATIVE: Patient is a 70-year-old M with unknown past medical history presented today for possible seizure. 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 This lasted for about 30 seconds patient was still not responding and stiff. Patient was given 2 mg ativan IV. Patient was given another 2 mg and patient loosen up. Patient was placed on the monitor and nonrebreather. Pt O2 was 99% Patient started to withdrawal to pain when we sternal rub him. Unclear what triggered or caused this patient to have a seizure. - Related Data Allergies Allergy/AdvReac Type Severity Reaction Status Date / Time No Known Allergies Allergy Verified 11/04/20 09:08 Home Meds: Home Meds Ascorbic Acid [Vitamin C] 1,000 mg PO DAILY 03/16/15 [History] Aspirin [Hobson Aspirin EC] 81 mg PO DAILY 03/16/15 [History] Cyanocobalamin (Vitamin B12) [Vitamin B12] 1,000 mcg PO DAILY 03/16/15 [History] Fish Oil/[place]-3 Fatty Acids [Fish Oil 1,000 MG] 1,200 mg PO BID 03/16/15 [History] Folic Acid 800 mcg PO DAILY 03/16/15 [History] Lisinopril 10 mg PO DAILY 03/16/15 [History] Multivitamin [Multivitamins] 1 tab PO DAILY 03/16/15 [History] Sertraline HCl 100 mg PO DAILY 03/16/15 [History] Simvastatin [Zocor] 20 mg PO BEDTIME 03/16/15 [History] Vitamin E 400 units PO DAILY 03/16/15 [History] Vitamin B6-pyridOXINE 100 mg PO DAILY 11/27/18 [History] Past Medical History HEENT History: Reports: Other (See Below) Other HEENT History: wears glasses Cardiovascular History: Reports: High Cholesterol, Hypertension Respiratory History: Reports: None Gastrointestinal History: Reports: Colon Polyp, Diverticulosis Genitourinary History: Reports: None Musculoskeletal History: Reports: Arthritis Other Musculoskeletal History: hands Neurological History: Reports: None Psychiatric History: Reports: Depression Endocrine/Metabolic History: Reports: Obesity/BMI 30+ (BMI 33.2), Other (See Below) (prediabetes) Hematologic History: Reports: None Immunologic History: Reports: None Oncologic (Cancer) History: Reports: None Dermatologic History: Reports: None - Past Surgical History Head Surgeries/Procedures: Reports: None HEENT Surgical History: Reports: Other (See Below) Other HEENT Surgeries/Procedures: excision of forehead lesion Cardiovascular Surgical History: Reports: None Respiratory Surgical History: Reports: None GI Surgical History: Reports: Colonoscopy, Hernia, Inguinal Male Surgical History: Reports: None, Vasectomy Endocrine Surgical History: Reports: None Neurological Surgical History: Reports: None Musculoskeletal Surgical History: Reports: None, Shoulder Surgery (left shoulder rotator cuff repair) Oncologic Surgical History: Reports: None Dermatological Surgical History: Reports: Skin Biopsy Social & Family History - Family History Family Medical History: No Pertinent Family History ED ROS GENERAL - Review of Systems Review Of Systems: Unable To Obtain Reason Not Obtained: mental status ED EXAM, NEURO - Physical Exam Exam: See Below Exam Limited By: Altered Mental Status General Appearance: Obtunded Eye Exam: Bilateral Eye: PERRL Head Exam: Atraumatic, Normocephalic Respiratory/Chest: Lungs Clear, Normal Breath Sounds Cardiovascular: Normal Peripheral Pulses, Regular Rate, Rhythm GI/Abdominal: Normal Bowel Sounds, Soft Neurological: Withdraws to Pain #1 Interpretation EKG Date: 12/12/20 Time: 15:16 Rhythm: Other (sinus tachy) Rate (Beats/Min): 100 ST-T: Normal Course - Vital Signs Last Recorded V/S: Last Vital Signs Temp 99.2 F 12/12/20 15:10 Pulse 78 12/12/20 17:44 Resp 17 12/12/20 17:44 BP 118/55 L 12/12/20 17:44 Pulse Ox 95 12/12/20 17:44 - Orders/Labs/Meds Orders: Active Orders 24 hr Category Date Time Status Patient Status [ADT] Routine ADT 12/12/20 17:54 Active Blood Glucose Check, Bedside [RC] ONETIME Care 12/12/20 15:19 Active Cardiac Monitoring [RC] . DIRECTED Care 12/12/20 15:21 Active EKG Documentation Completion [RC] STAT Care 12/12/20 15:18 Active Oxygen Therapy [RC] ASDIRECTED Care 12/12/20 15:21 Active DRUG SCREEN, URINE [URCHEM] Stat Lab 12/12/20 15:18 Ordered UA RFX LISA AND CULT IF INDIC [URIN] Stat Lab 12/12/20 15:18 Ordered Sodium Chloride 0.9% [Normal Saline] Med 12/12/20 15:20 Active 10 ml IV ASDIRECTED PRN Sodium Chloride 0.9% [Saline Flush] Med 12/12/20 15:20 Active 10 ml FLUSH ASDIRECTED PRN Sodium Chloride 0.9% [Saline Flush] Med 12/12/20 15:20 Active 2.5 ml FLUSH ASDIRECTED PRN Peripheral IV Insertion Adult [OM.PC] Stat Oth 12/12/20 15:21 Ordered Medication Orders Sodium Chloride (Sodium Chloride 0.9% 10 Ml Syringe) 10 ml FLUSH ASDIRECTED PRN PRN Reason: Keep Vein Open Last Admin: 12/12/20 15:40 Dose: 10 ml Documented by: [id number] Sodium Chloride (Sodium Chloride 0.9% 2.5 Ml Syringe) 2.5 ml FLUSH ASDIRECTED PRN PRN Reason: Keep Vein Open Last Admin: 12/12/20 15:40 Dose: 2.5 ml Documented by: [id number] Sodium Chloride (Sodium Chloride 0.9% 10 Ml Sdv) 10 ml IV ASDIRECTED PRN PRN Reason: IV Use Labs: Laboratory Tests 12/12/20 12/12/20 12/12/20 Range/Units 15:10 15:10 15:10 WBC 11.24 H (4.0-11.0) K/uL RBC 4.78 (4.50-5.90) M/uL Hgb 14.8 (13.0-17.0) g/dL Hct 44.4 (38.0-50.0) % MCV 92.9 (80.0-98.0) fL MCH 31.0 (27.0-32.0) pg MCHC 33.3 (31.0-37.0) g/dL RDW Std Deviation 50.3 (28.0-62.0) fl RDW Coeff of Kiana 15 (11.0-15.0) % Plt Count 188 (150-400) K/uL MPV 10.90 (7.40-12.00) fL Neut % (Auto) 53.6 (48.0-80.0) % Lymph % (Auto) 35.9 (16.0-40.0) % [place] % (Auto) 6.8 (0.0-15.0) % Eos % (Auto) 3.2 (0.0-7.0) % Baso % (Auto) 0.5 (0.0-1.5) % Neut # (Auto) 6.0 H (1.4-5.7) K/uL Lymph # (Auto) 4.0 H (0.6-2.4) K/uL [place] # (Auto) 0.8 (0.0-0.8) K/uL Eos # (Auto) 0.4 (0.0-0.7) K/uL Baso # (Auto) 0.1 (0.0-0.1) K/uL Nucleated RBC % 0.0 /100WBC Nucleated RBCs # 0 K/uL INR 1.00 APTT (18.6-31.3) SEC Lactate (0.20-2.00) mmol/L Sodium 148 (136-148) mmol/L Potassium 4.3 (3.5-5.1) mmol/L Chloride 107 (98-107) mmol/L Carbon Dioxide 18.9 L (21.0-32.0) mmol/L BUN 16 (7.0-18.0) mg/dL Creatinine 1.2 (0.8-1.3) mg/dL Est Cr Clr Drug Dosing TNP Estimated GFR (MDRD) 59.9 ml/min Glucose 185 H (74-106) mg/dL Calcium 9.3 (8.5-10.1) mg/dL Total Bilirubin 0.6 (0.2-1.0) mg/dL AST 26 (15-37) IU/L ALT 34 (14-63) IU/L Alkaline Phosphatase 102 (46-116) U/L Troponin I < 0.050 (0.000-0.056) ng/mL Total Protein 7.8 (6.4-8.2) g/dL Albumin 3.8 (3.4-5.0) g/dL Globulin 4.0 (2.6-4.0) g/dL Albumin/Globulin Ratio 0.9 (0.9-1.6) TSH 3rd Generation 8.50 H (0.36-3.74) uIU/mL Ethyl Alcohol < 3.0 mg/dL Influenza Type A RNA (NEGATIVE) Influenza Type B RNA (NEGATIVE) SARS-CoV-2 RNA (SOFIYA) (NEGATIVE) 12/12/20 12/12/20 12/12/20 Range/Units 15:10 15:18 16:50 WBC (4.0-11.0) K/uL RBC (4.50-5.90) M/uL Hgb (13.0-17.0) g/dL Hct (38.0-50.0) % MCV (80.0-98.0) fL MCH (27.0-32.0) pg MCHC (31.0-37.0) g/dL RDW Std Deviation (28.0-62.0) fl RDW Coeff of Kiana (11.0-15.0) % Plt Count (150-400) K/uL MPV (7.40-12.00) fL Neut % (Auto) (48.0-80.0) % Lymph % (Auto) (16.0-40.0) % [place] % (Auto) (0.0-15.0) % Eos % (Auto) (0.0-7.0) % Baso % (Auto) (0.0-1.5) % Neut # (Auto) (1.4-5.7) K/uL Lymph # (Auto) (0.6-2.4) K/uL [place] # (Auto) (0.0-0.8) K/uL Eos # (Auto) (0.0-0.7) K/uL Baso # (Auto) (0.0-0.1) K/uL Nucleated RBC % /100WBC Nucleated RBCs # K/uL INR APTT 21.9 (18.6-31.3) SEC Lactate 12.0 H* (0.20-2.00) mmol/L Sodium (136-148) mmol/L Potassium (3.5-5.1) mmol/L Chloride (98-107) mmol/L Carbon Dioxide (21.0-32.0) mmol/L BUN (7.0-18.0) mg/dL Creatinine (0.8-1.3) mg/dL Est Cr Clr Drug Dosing Estimated GFR (MDRD) ml/min Glucose (74-106) mg/dL Calcium (8.5-10.1) mg/dL Total Bilirubin (0.2-1.0) mg/dL AST (15-37) IU/L ALT (14-63) IU/L Alkaline Phosphatase (46-116) U/L Troponin I (0.000-0.056) ng/mL Total Protein (6.4-8.2) g/dL Albumin (3.4-5.0) g/dL Globulin (2.6-4.0) g/dL Albumin/Globulin Ratio (0.9-1.6) TSH 3rd Generation (0.36-3.74) uIU/mL Ethyl Alcohol mg/dL Influenza Type A RNA NEGATIVE (NEGATIVE) Influenza Type B RNA NEGATIVE (NEGATIVE) SARS-CoV-2 RNA (SOFIYA) NEGATIVE (NEGATIVE) 12/12/20 Range/Units 17:27 WBC (4.0-11.0) K/uL RBC (4.50-5.90) M/uL Hgb (13.0-17.0) g/dL Hct (38.0-50.0) % MCV (80.0-98.0) fL MCH (27.0-32.0) pg MCHC (31.0-37.0) g/dL RDW Std Deviation (28.0-62.0) fl RDW Coeff of Kiana (11.0-15.0) % Plt Count (150-400) K/uL MPV (7.40-12.00) fL Neut % (Auto) (48.0-80.0) % Lymph % (Auto) (16.0-40.0) % [place] % (Auto) (0.0-15.0) % Eos % (Auto) (0.0-7.0) % Baso % (Auto) (0.0-1.5) % Neut # (Auto) (1.4-5.7) K/uL Lymph # (Auto) (0.6-2.4) K/uL [place] # (Auto) (0.0-0.8) K/uL Eos # (Auto) (0.0-0.7) K/uL Baso # (Auto) (0.0-0.1) K/uL Nucleated RBC % /100WBC Nucleated RBCs # K/uL INR APTT (18.6-31.3) SEC Lactate 2.3 H* (0.20-2.00) mmol/L Sodium (136-148) mmol/L Potassium (3.5-5.1) mmol/L Chloride (98-107) mmol/L Carbon Dioxide (21.0-32.0) mmol/L BUN (7.0-18.0) mg/dL Creatinine (0.8-1.3) mg/dL Est Cr Clr Drug Dosing Estimated GFR (MDRD) ml/min Glucose (74-106) mg/dL Calcium (8.5-10.1) mg/dL Total Bilirubin (0.2-1.0) mg/dL AST (15-37) IU/L ALT (14-63) IU/L Alkaline Phosphatase (46-116) U/L Troponin I (0.000-0.056) ng/mL Total Protein (6.4-8.2) g/dL Albumin (3.4-5.0) g/dL Globulin (2.6-4.0) g/dL Albumin/Globulin Ratio (0.9-1.6) TSH 3rd Generation (0.36-3.74) uIU/mL Ethyl Alcohol mg/dL Influenza Type A RNA (NEGATIVE) Influenza Type B RNA (NEGATIVE) SARS-CoV-2 RNA (SOFIYA) (NEGATIVE) Meds: Medications Generic Name Dose Route Start Last Admin Trade Name Freq PRN Reason Stop Dose Admin Sodium Chloride 10 ml 12/12/20 15:20 12/12/20 15:40 Sodium Chloride 0.9% 10 Ml Syringe FLUSH 10 ml ASDIRECTED PRN Administration Keep Vein Open Sodium Chloride 2.5 ml 12/12/20 15:20 12/12/20 15:40 Sodium Chloride 0.9% 2.5 Ml Syringe FLUSH 2.5 ml ASDIRECTED PRN Administration Keep Vein Open Sodium Chloride 10 ml 12/12/20 15:20 Sodium Chloride 0.9% 10 Ml Sdv IV ASDIRECTED PRN IV Use Discontinued Medications Generic Name Dose Route Start Last Admin Trade Name Freq PRN Reason Stop Dose Admin Sodium Chloride 1,000 mls @ 999 mls/hr 12/12/20 15:18 12/12/20 15:40 Normal Saline IV 12/12/20 16:18 999 mls/hr STAT ONE Administration Sodium Chloride 1,000 mls @ 999 mls/hr 12/12/20 16:06 12/12/20 16:09 Normal Saline IV 12/12/20 17:06 999 mls/hr .Bolus ONE Administration Lorazepam 2 mg 12/12/20 15:18 12/12/20 15:12 Lorazepam 2 Mg/Ml Sdv IVPUSH 12/12/20 15:19 2 mg ONETIME ONE Administration Lorazepam 2 mg 12/12/20 15:22 12/12/20 15:14 Lorazepam 2 Mg/Ml Sdv IVPUSH 12/12/20 15:23 2 mg ONETIME ONE Administration - Re-Assessments/Exams Free Text/Narrative Re-Assessment/Exam: 12/12/20 17:58 Patient is now awake and talking and seems to be returning back to baseline. This is a new onset seizure for patient unsure we will start any AEDs. Patient will be admitted to the hospital for further observation. Departure - Departure Time of Disposition: 17:56 Disposition: Refer to Observation Condition: Good Clinical Impression: Seizure - Discharge Information *PRESCRIPTION DRUG MONITORING PROGRAM REVIEWED*: Not Applicable *COPY OF PRESCRIPTION DRUG MONITORING REPORT IN PATIENT YESSY: Not Applicable Forms: ED Department Discharge Sepsis Event Note (ED) - Focused Exam Vital Signs: Vital Signs Temp Pulse Resp BP Pulse Ox 12/12/20 17:44 78 17 118/55 L 95 12/12/20 16:45 88 17 108/50 L 100 12/12/20 16:29 89 15 113/52 L 97 12/12/20 15:33 101 H 14 146/74 H 99 12/12/20 15:10 99.2 F 102 H 12 177/82 H 99 - My Orders Last 24 Hours: My Active Orders 12/12/20 17:54 Patient Status [ADT] Routine - Assessment/Plan Last 24 Hours: My Active Orders 12/12/20 17:54 Patient Status [ADT] Routine Plan: Patient is a 70-year-old male who presents today for possible seizure. Patient has no known history of seizures. Patient was given 4 mg Ativan as he does seem to have resolved. Will obtain labs CT and reassess.
--- NOTE | 2020-12-12 15:46 | CT ---
INDICATION: Syncope, unresponsive TECHNIQUE: CT head without contrast. COMPARISON: None FINDINGS: CSF spaces: Within normal limits for age. Brain parenchyma: The fraga-white differentiation is normal. No sign of mass, hemorrhage, or midline shift. Skull base and calvarium: The visualized paranasal sinuses and mastoid air cells demonstrate no acute or significant findings. The visualized orbits are grossly unremarkable. No skull fractures. IMPRESSION: Unremarkable noncontrast head CT. Please note that all CT scans at this facility use dose modulation, iterative reconstruction, and/or weight-based dosing when appropriate to reduce radiation dose to as low as reasonably achievable. Dictated by Lester Sahu MD @ 12/12/2020 3:44:[address] Lester Sahu @ Dec 12 2020 3:44PM
--- NOTE | 2020-12-12 15:59 | CR ---
INDICATION: Syncope TECHNIQUE: Chest 1 view. COMPARISON: None FINDINGS: Cardiovascular and mediastinum: Cardiomegaly. Mediastinum is within normal limits. Lungs and pleural space: Lungs are clear. No sign of infiltrate or mass. No sign of pleural effusion. No pneumothorax. Bones and soft tissues: No significant findings. IMPRESSION: No acute pulmonary or cardiac abnormalities. Cardiomegaly. Dictated by Lester Sahu MD @ 12/12/2020 3:58:[address] Lester Sahu @ Dec 12 2020 3:58PM
[2020-12-12 16:10] LABS: BLOOD UREA NITROGEN,BUN 16 mg/dL (7.0-18.0); CARBON DIOXIDE,CO2 18.9 mmol/L (21.0-32.0); CHLORIDE,CL 107 mmol/L (98-107); GLUCOSE RANDOM 185 mg/dL (74-106); POTASSIUM,K 4.3 mmol/L (3.5-5.1); SODIUM,NA 148 mmol/L (136-148)
[2020-12-12 17:44] LABS: CORONAVIRUS COVID-19 NAA NEGATIVE (NEGATIVE); INFLUENZA A NAA NEGATIVE (NEGATIVE); INFLUENZA B NAA NEGATIVE (NEGATIVE)
[2020-12-12 17:52] VITALS: PULSE 78
[2020-12-12] MEDS ORDERED: Albuterol/Ipratropium 3.0-0.5 MG/3 ML Neb Soln NEB PRN (20:34)
[2020-12-12] MEDS ORDERED: Ondansetron 4 MG/2 ML SDV IVPUSH PRN (20:34)
[2020-12-12] MEDS ORDERED: LORazepam 2 MG/ML SDV IVPUSH PRN (20:36)
--- NOTE | 2020-12-12 20:40 | PCM.HP.2 ---
H&P History of Present Illness - General Date of Service: 12/12/20 Admit Problem/Dx: Admission Diagnosis/Problem Admission Diagnosis/Problem Seizure - History of Present Illness Initial Comments - Free Text/Narative: patient is a 70-year-old male with past medical history of hypertension, hyperlipidemia, depression, possible history of remote seizure who comes in for evaluation of possible witnessed seizure. 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 patient also reportedly bit his tongue. The episode lasted for about 30 seconds after which she stopped having seizure but he was still very somnolent and and stiff. he shouldn't receive total of 4 mg of Ativan. Patient was placed on the monitor and nonrebreather. Pt O2 was 99% Patient started to withdrawal to pain when we sternal rub him. she states that he has a remote history of seizure possibly in 2013 when he was undergoing a major stress in his life, states that he never really followed up with any physician regarding it and has not been placed on any anti-seizure medications. Patient has had no episodes of seizure ever since. Patient states that he has used no recreational drugs or any herbal supplements recently. Patient denies any recent history of head injury or trauma. Patient does state that he could smell "burning tire" just before his seizures started. Patient does not remember the details of the seizure on the remembers waking up in the ER. Patient denies any recent stressor in his life, is not sure what triggered his seizure. patient's labs showed elevated lactic acid which eventual ly did resolve with aggressive IV fluids. rest of the labs were benign including toxicology screen, CT scan of the head was unremarkable as well. due to patient's prolonged post ictal. Patient was admitted for further management. - Related Data Allergies/Adverse Reactions: Allergies Allergy/AdvReac Type Severity Reaction Status Date / Time No Known Allergies Allergy Verified 11/04/20 09:08 Home Medications: Home Meds Ascorbic Acid [Vitamin C] 1,000 mg PO DAILY 03/16/15 [History] Aspirin [Union Aspirin EC] 81 mg PO DAILY 03/16/15 [History] Cyanocobalamin (Vitamin B12) [Vitamin B12] 1,000 mcg PO DAILY 03/16/15 [History] Fish Oil/[place]-3 Fatty Acids [Fish Oil 1,000 MG] 1,200 mg PO BID 03/16/15 [History] Folic Acid 800 mcg PO DAILY 03/16/15 [History] Lisinopril 10 mg PO DAILY 03/16/15 [History] Multivitamin [Multivitamins] 1 tab PO DAILY 03/16/15 [History] Sertraline HCl 100 mg PO DAILY 03/16/15 [History] Simvastatin [Zocor] 20 mg PO BEDTIME 03/16/15 [History] Vitamin E 400 units PO DAILY 03/16/15 [History] Vitamin B6-pyridOXINE 100 mg PO DAILY 11/27/18 [History] Past Medical History HEENT History: Reports: Impaired Vision, Other (See Below) Other HEENT History: wears glasses Cardiovascular History: Reports: High Cholesterol, Hypertension Respiratory History: Reports: None Gastrointestinal History: Reports: Colon Polyp, Diverticulosis Genitourinary History: Reports: None Musculoskeletal History: Reports: Arthritis Other Musculoskeletal History: hands Neurological History: Reports: Seizure Other Neuro History: Patient states he had a seizure in 2018 Psychiatric History: Reports: Depression Endocrine/Metabolic History: Reports: Obesity/BMI 30+, Other (See Below) Hematologic History: Reports: None Immunologic History: Reports: None Oncologic (Cancer) History: Reports: None Dermatologic History: Reports: None - Past Surgical History Head Surgeries/Procedures: Reports: None HEENT Surgical History: Reports: Other (See Below) Other HEENT Surgeries/Procedures: excision of forehead lesion Cardiovascular Surgical History: Reports: None Respiratory Surgical History: Reports: None GI Surgical History: Reports: Colonoscopy, Hernia, Inguinal Male Surgical History: Reports: None, Vasectomy Endocrine Surgical History: Reports: None Neurological Surgical History: Reports: None Musculoskeletal Surgical History: Reports: None, Shoulder Surgery Oncologic Surgical History: Reports: None Dermatological Surgical History: Reports: Skin Biopsy Social & Family History - Family History Family Medical History: No Pertinent Family History HEENT: Reports: None - Tobacco Use Tobacco Use Status *Q: Never Tobacco User Second Hand Smoke Exposure: No - Caffeine Use Caffeine Use: Reports: None - Recreational Drug Use Recreational Drug Use: No H&P Review of Systems - Review of Systems: Review Of Systems: See Below General: Reports: Weakness, Fatigue. Denies: Fever, Chills, Malaise Pulmonary: Denies: Shortness of Breath, Wheezing Gastrointestinal: Denies: Abdominal Pain, Anorexia, Black Stool Genitourinary: Denies: Dysuria, Burning Musculoskeletal: Reports: Shoulder Pain, Arm Pain. Denies: Neck Pain, Back Pain, Hand Pain Skin: Denies: Cyanosis, Mottled Psychiatric: Denies: Confusion, Anxiety, Agitation, Hallucinations (Auditory), Hallucinations (Visual) Neurological: Denies: Confusion, Dizziness, Headache, Pre-Existing Deficit, Tremors, Trouble Speaking, Difficulty Walking, Weakness, Change in Speech Hematologic/Lymphatic: Denies: Anemia, Easy Bleeding, Easy Bruising Exam - Exam Exam: See Below - Vital Signs Vital Signs: Last Vital Signs Temp 36.4 C 12/12/20 20:00 Pulse 78 12/12/20 17:44 Resp 16 12/12/20 20:00 BP 150/66 H 12/12/20 20:00 Pulse Ox 95 12/12/20 20:00 Weight: 97.069 kg - Exam General: Alert, Oriented HEENT: Conjunctiva Clear Neck: Supple, Trachea Midline Lungs: Clear to Auscultation Cardiovascular: Regular Rate, Regular Rhythm GI/Abdominal Exam: Normal Bowel Sounds, Soft, Non-Tender Extremities: Normal Inspection, Arm Pain, Other (right shoulder tenderness and pain upon shoulder movement) - Patient Data Lab Results Last 24 hrs: Laboratory Results - last 24 hr 12/12/20 12/12/20 12/12/20 Range/Units 15:10 15:10 15:10 WBC 11.24 H (4.0-11.0) K/uL RBC 4.78 (4.50-5.90) M/uL Hgb 14.8 (13.0-17.0) g/dL Hct 44.4 (38.0-50.0) % MCV 92.9 (80.0-98.0) fL MCH 31.0 (27.0-32.0) pg MCHC 33.3 (31.0-37.0) g/dL RDW Std Deviation 50.3 (28.0-62.0) fl RDW Coeff of Kiana 15 (11.0-15.0) % Plt Count 188 (150-400) K/uL MPV 10.90 (7.40-12.00) fL Neut % (Auto) 53.6 (48.0-80.0) % Lymph % (Auto) 35.9 (16.0-40.0) % Izard % (Auto) 6.8 (0.0-15.0) % Eos % (Auto) 3.2 (0.0-7.0) % Baso % (Auto) 0.5 (0.0-1.5) % Neut # (Auto) 6.0 H (1.4-5.7) K/uL Lymph # (Auto) 4.0 H (0.6-2.4) K/uL [place] # (Auto) 0.8 (0.0-0.8) K/uL Eos # (Auto) 0.4 (0.0-0.7) K/uL Baso # (Auto) 0.1 (0.0-0.1) K/uL Nucleated RBC % 0.0 /100WBC Nucleated RBCs # 0 K/uL INR 1.00 APTT (18.6-31.3) SEC Lactate (0.20-2.00) mmol/L Sodium 148 (136-148) mmol/L Potassium 4.3 (3.5-5.1) mmol/L Chloride 107 (98-107) mmol/L Carbon Dioxide 18.9 L (21.0-32.0) mmol/L BUN 16 (7.0-18.0) mg/dL Creatinine 1.2 (0.8-1.3) mg/dL Est Cr Clr Drug Dosing TNP Estimated GFR (MDRD) 59.9 ml/min Glucose 185 H (74-106) mg/dL Calcium 9.3 (8.5-10.1) mg/dL Total Bilirubin 0.6 (0.2-1.0) mg/dL AST 26 (15-37) IU/L ALT 34 (14-63) IU/L Alkaline Phosphatase 102 (46-116) U/L Troponin I < 0.050 (0.000-0.056) ng/mL Total Protein 7.8 (6.4-8.2) g/dL Albumin 3.8 (3.4-5.0) g/dL Globulin 4.0 (2.6-4.0) g/dL Albumin/Globulin Ratio 0.9 (0.9-1.6) TSH 3rd Generation 8.50 H (0.36-3.74) uIU/mL Urine Color Urine Appearance Urine pH (5.0-8.0) Ur Specific [place] (1.001-1.035) Urine Protein (NEGATIVE) mg/dL Urine Glucose (UA) (NEGATIVE) mg/dL Urine Ketones (NEGATIVE) mg/dL Urine Occult Blood (NEGATIVE) Urine Nitrite (NEGATIVE) Urine Bilirubin (NEGATIVE) Urine Urobilinogen (<2.0) EU/dL Ur Leukocyte Esterase (NEGATIVE) Urine Opiates Screen (NEGATIVE) Ur Oxycodone Screen (NEGATIVE) Urine Methadone Screen (NEGATIVE) Ur Barbiturates Screen (NEGATIVE) Ur Phencyclidine Scrn (NEGATIVE) Ur Amphetamine Screen (NEGATIVE) U Methamphetamines Scrn (NEGATIVE) U Benzodiazepines Scrn (NEGATIVE) U Cocaine Metab Screen (NEGATIVE) U Marijuana (THC) Screen (NEGATIVE) Ethyl Alcohol < 3.0 mg/dL Influenza Type A RNA (NEGATIVE) Influenza Type B RNA (NEGATIVE) SARS-CoV-2 RNA (SOFIYA) (NEGATIVE) 12/12/20 12/12/20 12/12/20 Range/Units 15:10 15:18 16:50 WBC (4.0-11.0) K/uL RBC (4.50-5.90) M/uL Hgb (13.0-17.0) g/dL Hct (38.0-50.0) % MCV (80.0-98.0) fL MCH (27.0-32.0) pg MCHC (31.0-37.0) g/dL RDW Std Deviation (28.0-62.0) fl RDW Coeff of Kiana (11.0-15.0) % Plt Count (150-400) K/uL MPV (7.40-12.00) fL Neut % (Auto) (48.0-80.0) % Lymph % (Auto) (16.0-40.0) % Iz[place] % (Auto) (0.0-15.0) % Eos % (Auto) (0.0-7.0) % Baso % (Auto) (0.0-1.5) % Neut # (Auto) (1.4-5.7) K/uL Lymph # (Auto) (0.6-2.4) K/uL [place] # (Auto) (0.0-0.8) K/uL Eos # (Auto) (0.0-0.7) K/uL Baso # (Auto) (0.0-0.1) K/uL Nucleated RBC % /100WBC Nucleated RBCs # K/uL INR APTT 21.9 (18.6-31.3) SEC Lactate 12.0 H* (0.20-2.00) mmol/L Sodium (136-148) mmol/L Potassium (3.5-5.1) mmol/L Chloride (98-107) mmol/L Carbon Dioxide (21.0-32.0) mmol/L BUN (7.0-18.0) mg/dL Creatinine (0.8-1.3) mg/dL Est Cr Clr Drug Dosing Estimated GFR (MDRD) ml/min Glucose (74-106) mg/dL Calcium (8.5-10.1) mg/dL Total Bilirubin (0.2-1.0) mg/dL AST (15-37) IU/L ALT (14-63) IU/L Alkaline Phosphatase (46-116) U/L Troponin I (0.000-0.056) ng/mL Total Protein (6.4-8.2) g/dL Albumin (3.4-5.0) g/dL Globulin (2.6-4.0) g/dL Albumin/Globulin Ratio (0.9-1.6) TSH 3rd Generation (0.36-3.74) uIU/mL Urine Color Urine Appearance Urine pH (5.0-8.0) Ur Specific [place] (1.001-1.035) Urine Protein (NEGATIVE) mg/dL Urine Glucose (UA) (NEGATIVE) mg/dL Urine Ketones (NEGATIVE) mg/dL Urine Occult Blood (NEGATIVE) Urine Nitrite (NEGATIVE) Urine Bilirubin (NEGATIVE) Urine Urobilinogen (<2.0) EU/dL Ur Leukocyte Esterase (NEGATIVE) Urine Opiates Screen (NEGATIVE) Ur Oxycodone Screen (NEGATIVE) Urine Methadone Screen (NEGATIVE) Ur Barbiturates Screen (NEGATIVE) Ur Phencyclidine Scrn (NEGATIVE) Ur Amphetamine Screen (NEGATIVE) U Methamphetamines Scrn (NEGATIVE) U Benzodiazepines Scrn (NEGATIVE) U Cocaine Metab Screen (NEGATIVE) U Marijuana (THC) Screen (NEGATIVE) Ethyl Alcohol mg/dL Influenza Type A RNA NEGATIVE (NEGATIVE) Influenza Type B RNA NEGATIVE (NEGATIVE) SARS-CoV-2 RNA (SOFIYA) NEGATIVE (NEGATIVE) 12/12/20 12/12/20 12/12/20 Range/Units 17:27 19:40 19:40 WBC (4.0-11.0) K/uL RBC (4.50-5.90) M/uL Hgb (13.0-17.0) g/dL Hct (38.0-50.0) % MCV (80.0-98.0) fL MCH (27.0-32.0) pg MCHC (31.0-37.0) g/dL RDW Std Deviation (28.0-62.0) fl RDW Coeff of Kiana (11.0-15.0) % Plt Count (150-400) K/uL MPV (7.40-12.00) fL Neut % (Auto) (48.0-80.0) % Lymph % (Auto) (16.0-40.0) % [place] % (Auto) (0.0-15.0) % Eos % (Auto) (0.0-7.0) % Baso % (Auto) (0.0-1.5) % Neut # (Auto) (1.4-5.7) K/uL Lymph # (Auto) (0.6-2.4) K/uL [place] # (Auto) (0.0-0.8) K/uL Eos # (Auto) (0.0-0.7) K/uL Baso # (Auto) (0.0-0.1) K/uL Nucleated RBC % /100WBC Nucleated RBCs # K/uL INR APTT (18.6-31.3) SEC Lactate 2.3 H* (0.20-2.00) mmol/L Sodium (136-148) mmol/L Potassium (3.5-5.1) mmol/L Chloride (98-107) mmol/L Carbon Dioxide (21.0-32.0) mmol/L BUN (7.0-18.0) mg/dL Creatinine (0.8-1.3) mg/dL Est Cr Clr Drug Dosing Estimated GFR (MDRD) ml/min Glucose (74-106) mg/dL Calcium (8.5-10.1) mg/dL Total Bilirubin (0.2-1.0) mg/dL AST (15-37) IU/L ALT (14-63) IU/L Alkaline Phosphatase (46-116) U/L Troponin I (0.000-0.056) ng/mL Total Protein (6.4-8.2) g/dL Albumin (3.4-5.0) g/dL Globulin (2.6-4.0) g/dL Albumin/Globulin Ratio (0.9-1.6) TSH 3rd Generation (0.36-3.74) uIU/mL Urine Color YELLOW Urine Appearance CLEAR Urine pH 5.5 (5.0-8.0) Ur Specific [place] >= 1.030 (1.001-1.035) Urine Protein NEGATIVE (NEGATIVE) mg/dL Urine Glucose (UA) NEGATIVE (NEGATIVE) mg/dL Urine Ketones NEGATIVE (NEGATIVE) mg/dL Urine Occult Blood NEGATIVE (NEGATIVE) Urine Nitrite NEGATIVE (NEGATIVE) Urine Bilirubin NEGATIVE (NEGATIVE) Urine Urobilinogen 0.2 (<2.0) EU/dL Ur Leukocyte Esterase NEGATIVE (NEGATIVE) Urine Opiates Screen NEGATIVE (NEGATIVE) Ur Oxycodone Screen NEGATIVE (NEGATIVE) Urine Methadone Screen NEGATIVE (NEGATIVE) Ur Barbiturates Screen NEGATIVE (NEGATIVE) Ur Phencyclidine Scrn NEGATIVE (NEGATIVE) Ur Amphetamine Screen NEGATIVE (NEGATIVE) U Methamphetamines Scrn NEGATIVE (NEGATIVE) U Benzodiazepines Scrn NEGATIVE (NEGATIVE) U Cocaine Metab Screen NEGATIVE (NEGATIVE) U Marijuana (THC) Screen NEGATIVE (NEGATIVE) Ethyl Alcohol mg/dL Influenza Type A RNA (NEGATIVE) Influenza Type B RNA (NEGATIVE) SARS-CoV-2 RNA (SOFIYA) (NEGATIVE) Result Diagrams: 12/12/20 15:10 12/12/20 15:10 Sepsis Event Note - Evaluation Sepsis Screening Result: No Definite Risk - Focused Exam Vital Signs: Vital Signs Temp Pulse Resp BP Pulse Ox 12/12/20 20:00 36.4 C 16 150/66 H 95 12/12/20 17:44 78 17 118/55 L 95 12/12/20 16:45 88 17 108/50 L 100 12/12/20 16:29 89 15 113/52 L 97 12/12/20 15:33 101 H 14 146/74 H 99 12/12/20 15:10 37.3 C 102 H 12 177/82 H 99 - Problem List (1) Right shoulder pain SNOMED Code(s): 56737801, 10352160 ICD Code: M25.511 - PAIN IN RIGHT SHOULDER Status: Acute Current Visit: Yes (2) Seizure SNOMED Code(s): 66772599 ICD Code: R56.9 - UNSPECIFIED CONVULSIONS Status: Acute Current Visit: Yes (3) Inguinal hernia SNOMED Code(s): 548534584 ICD Code: K40.90 - UNIL INGUINAL HERNIA, W/O OBST OR GANGR, NOT SPCF RECUR Status: Acute Current Visit: No (4) Lactic acid acidosis SNOMED Code(s): 23805173 ICD Code: E87.2 - ACIDOSIS Status: Acute Current Visit: Yes Problem List Initiated/Reviewed/Updated: Yes Orders Last 24hrs: Active Orders 24 hr Category Date Time Status Patient Status [ADT] Routine ADT 12/12/20 17:54 Active Ambulate [RC] ASDIRECTED Care 12/12/20 20:34 Active Antiembolic Devices [RC] PER UNIT ROUTINE Care 12/12/20 20:35 Active Oxygen Therapy [RC] ASDIRECTED Care 12/12/20 15:21 Active Oxygen Therapy [RC] PRN Care 12/12/20 20:34 Active RT Aerosol Therapy [RC] ASDIRECTED Care 12/12/20 20:35 Active VTE/DVT Education [RC] PER UNIT ROUTINE Care 12/12/20 20:34 Active Vital Signs [RC] Q4H Care 12/12/20 20:34 Active Heart Healthy Diet [DIET] Diet 12/13/20 Breakfast Active BMP [BASIC METABOLIC PANEL,BMP] [CHEM] AM Lab 12/13/20 05:11 Ordered CBC WITH AUTO DIFF [HEME] AM Lab 12/13/20 05:11 Ordered LACTATE WITH REFLEX [BG] Routine Lab 12/12/20 21:30 Ordered MAGNESIUM [CHEM] AM Lab 12/13/20 05:11 Ordered PHOSPHORUS [CHEM] AM Lab 12/13/20 05:11 Ordered Acetaminophen [TylenoL] Med 12/12/20 20:34 Ordered 650 mg PO Q4H PRN Albuterol/Ipratropium [DuoNeb 3.0-0.5 MG/3 ML] Med 12/12/20 20:34 Ordered 3 ml NEB Q4HRRT PRN LORazepam [Ativan] Med 12/12/20 20:36 Ordered 2 mg IVPUSH Q1H PRN Lactated Ringers [Ringers, Lactated] 1,000 ml Med 12/12/20 20:45 Ordered IV ASDIRECTED Ondansetron [Zofran] Med 12/12/20 20:34 Ordered 4 mg IVPUSH Q4H PRN Sodium Chloride 0.9% [Normal Saline] Med 12/12/20 15:20 Active 10 ml IV ASDIRECTED PRN Sodium Chloride 0.9% [Saline Flush] Med 12/12/20 15:20 Active 10 ml FLUSH ASDIRECTED PRN Sodium Chloride 0.9% [Saline Flush] Med 12/12/20 15:20 Active 2.5 ml FLUSH ASDIRECTED PRN Peripheral IV Insertion Adult [OM.PC] Stat Ot 12/12/20 15:21 Ordered Sequential Compression Device [OM.PC] Per Unit Routine Ot 12/12/20 20:34 Ordered Medication Orders Acetaminophen (Acetaminophen 325 Mg Tab) 650 mg PO Q4H PRN PRN Reason: Pain (Mild 1-3)/fever Albuterol/Ipratropium (Albuterol/Ipratropium 3.0-0.5 Mg/3 Ml Neb Soln) 3 ml NEB Q4HRRT PRN PRN Reason: Shortness Of Breath/wheezing Lactated Ringer's (Ringers, Lactated) 1,000 mls @ 125 mls/hr IV ASDIRECTED RIVKA Lorazepam (Lorazepam 2 Mg/Ml Sdv) 2 mg IVPUSH Q1H PRN PRN Reason: Seizures Ondansetron HCl (Ondansetron 4 Mg/2 Ml Sdv) 4 mg IVPUSH Q4H PRN PRN Reason: Nausea/Vomiting Sodium Chloride (Sodium Chloride 0.9% 10 Ml Syringe) 10 ml FLUSH ASDIRECTED PRN PRN Reason: Keep Vein Open Last Admin: 12/12/20 15:40 Dose: 10 ml Documented by: [id number] Sodium Chloride (Sodium Chloride 0.9% 2.5 Ml Syringe) 2.5 ml FLUSH ASDIRECTED PRN PRN Reason: Keep Vein Open Last Admin: 12/12/20 15:40 Dose: 2.5 ml Documented by: [id number] Sodium Chloride (Sodium Chloride 0.9% 10 Ml Sdv) 10 ml IV ASDIRECTED PRN PRN Reason: IV Use Assessment/Plan Comment:: Patient is a 70-year-old male who comes in status post seizure episode start aggressive IV fluid hydration, follow upon repeat lactate level IV 2 mg Ativan as needed for seizure seizure precautions in place Fall precautions in place CT scan of the head was unremarkable, toxicology negative Obtain an MRI of the brain with and without contrast if pain in the right shoulder does not improve we'll obtain x-ray of the right shoulder in the morning, she states that he did fall on the right side of his body Continue to monitor closely Home meds as appropriate possibly needs outpatient EEG and neurology follow-up Touch base with urology in the a.m. to consider starting antiseizure medications Patient has been instructed not to drive until he is cleared by neurology
[2020-12-12] MEDS: Acetaminophen 325 MG Tab PO PRN (21:20)
[2020-12-12] MEDS: Lactated Ringers 1,000 ML IV SCH (21:21)
[2020-12-12] MEDS: Lisinopril 10 MG Tab PO SCH (23:50)
[2020-12-13] MEDS: Lactated Ringers 1,000 ML IV SCH (05:55)
[2020-12-13 06:11] LABS: BLOOD UREA NITROGEN,BUN 12 mg/dL (7.0-18.0); CARBON DIOXIDE,CO2 24.9 mmol/L (21.0-32.0); CHLORIDE,CL 108 mmol/L (98-107); GLUCOSE RANDOM 132 mg/dL (74-106); POTASSIUM,K 4.3 mmol/L (3.5-5.1); SODIUM,NA 142 mmol/L (136-148)
--- NOTE | 2020-12-13 07:34 | CR ---
Indication: Injury and pain Technique: Right shoulder 3 views Comparison: None Findings: Bones: Alignment is normal. No fractures or bone lesions. Joint spaces: Unremarkable. Soft tissues: Unremarkable. Impression: No sign of acute injury. Dictated by Johnny Henry MD @ 12/13/2020 7:32:[address] Johnny Henry @ Dec 13 2020 7:32AM
[2020-12-13] MEDS ORDERED: Magnesium Sulfate/Water 2 GM/50 ML BAG IV ONE (08:01)
[2020-12-13] MEDS: Lisinopril 10 MG Tab PO SCH (08:56)
[2020-12-13] MEDS ORDERED: Sertraline 100 MG Tab PO SCH (09:00)
[2020-12-13] MEDS ORDERED: Aspirin 81 MG Tab.EC PO SCH (09:00)
[2020-12-13] MEDS ORDERED: Gadobenate Dimeglumine 529 MG/ML 20 ML SDV IVPUSH STA (11:18)
[2020-12-13] MEDS ORDERED: Al and Mag Hydroxide/Diphenhydramine/Lidocaine/Simethicone 237 ML Bottle PO SCH (12:00)
[2020-12-13] MEDS ORDERED: levETIRAcetam 500 MG Tab PO SCH (12:30)
--- NOTE | 2020-12-13 12:35 | MR ---
Indication: Seizure Technique: Noncontrast sagittal T1, axial FLAIR, T2 turbo spine echo, SWI, and diffusion weighted images. Supplemental post contrast T1 weighted axial and coronal sequences are provided after administration of 20 mL gadolinium-based IV contrast. Supplemental coronal T2, FLAIR, and T1 weighted images through the hippocampi by are also submitted. Comparison: CT 12/12/2020 Findings: Mild cerebral and cerebellar parenchymal volume loss. Scattered foci of T2 prolongation in the periventricular and subcortical white matter are nonspecific but likely secondary to chronic small vessel white matter ischemic changes. The midline structures are centrally located with no evidence of shift. There are no suspicious intra or extra-axial fluid collections. No evidence of restricted diffusion to suggest acute ischemia. The hippocampal formations are symmetric and normal in size. Expected flow voids in the cavernous carotids and basilar artery. No abnormal contrast enhancement involving the brain parenchyma, meninges, calvarium or skull base. Polypoid mucosal thickening along the anterior wall of the left sphenoid sinus. Mild polypoid mucosal thickening in the left maxillary sinus Impression: 1. No evidence of acute intracranial abnormality. 2. Mild cerebral and cerebellar parenchymal volume loss and chronic microangiopathic white matter changes. 3. No abnormal enhancement. Dictated by Lester Cota MD @ 12/13/2020 12:33:[address] Lester Cota @ Dec 13 2020 12:33PM
--- NOTE | 2020-12-13 14:17 | PCM.DCSUM1 ---
Discharge Summary - Hospital Course Brief History: patient is a 70-year-old male with past medical history of hypertension, hyperlipidemia, depression, possible history of remote seizure who comes in for evaluation of possible witnessed seizure. 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 patient also reportedly bit his tongue. The episode lasted for about 30 seconds after which he stopped having seizure but he was still very somnolent and and stiff. he shouldn't receive total of 4 mg of Ativan. Patient was placed on the monitor and nonrebreather. Pt O2 was 99% Patient started to withdrawal to pain when we sternal rub him. he states that he has a remote history of seizure possibly in 2013 when he was undergoing a major stress in his life, states that he never really followed up with any physician regarding it and has not been placed on any anti-seizure medications. Patient has had no episodes of seizure ever since. Patient states that he has used no recreational drugs or any herbal supplements recently. Patient denies any recent history of head injury or trauma. Patient does state that he could smell "burning tire" just before his seizures started. Patient does not remember the details of the seizure on the remembers waking up in the ER. Patient denies any recent stressor in his life, is not sure what triggered his seizure. patient's labs showed elevated lactic acid which eventually did resolve with aggressive IV fluids. rest of the labs were benign including toxicology screen, CT scan of the head was unremarkable as well. due to patient's prolonged post ictal. Patient was admitted for further management. Diagnosis: Stroke: No - Discharge Data Discharge Date: 12/13/20 Discharge Disposition: Home, Self-Care 01 Condition: Stable - Referral to Home Health Primary Care Physician: PCP None - Discharge Diagnosis/Problem(s) (1) Seizure SNOMED Code(s): 87550183 ICD Code: R56.9 - UNSPECIFIED CONVULSIONS Status: Acute Current Visit: Yes (2) Hypertension SNOMED Code(s): 22707158 ICD Code: I10 - ESSENTIAL (PRIMARY) HYPERTENSION Status: Chronic Current Visit: Yes Qualifiers: Hypertension type: essential hypertension Qualified Code(s): I10 - Essential (primary) hypertension (3) LBBB (left bundle branch block) SNOMED Code(s): 84583799 ICD Code: I44.7 - LEFT BUNDLE-BRANCH BLOCK, UNSPECIFIED Status: Chronic Current Visit: Yes (4) HLD (hyperlipidemia) SNOMED Code(s): 94340871 ICD Code: E78.5 - HYPERLIPIDEMIA, UNSPECIFIED Status: Acute Current Visit: Yes (5) Depression SNOMED Code(s): 45314161 ICD Code: F32.9 - MAJOR DEPRESSIVE DISORDER, SINGLE EPISODE, UNSPECIFIED Status: Chronic Current Visit: Yes (6) Right shoulder pain SNOMED Code(s): 33678579, 13830777 ICD Code: M25.511 - PAIN IN RIGHT SHOULDER Status: Acute Current Visit: Yes Qualifiers: Chronicity: acute Qualified Code(s): M25.511 - Pain in right shoulder - Patient Summary/Data Hospital Course: Admission diagnoses Seizure Shoulder pain Discharge diagnoses Seizure Right shoulder pain Other PMH Left bundle branch block Hypertension HLD Depression Jaspal was admitted secondary to witnessed seizure activity at work. He was treated aggressively in the ICU with IV fluids and Ativan. Lactic acid was elevated upon first evaluation. With aggressive IV fluids this returned to normal. Vital signs otherwise were all stable. EKG did show left bundle branch block has no previous history of this and no previous EKG on file. Patient had no chest pain and troponin x2 was negative. We did recommend follow-up with cardiology for stress test and further evaluation in the future. Regarding seizure, Patient had CT of the brain in the ER was negative MRI with and without contrast was completed while admitted. This showed no acute intracranial process. And no sign of acute stroke. Dr. Teran was notified over the phone regarding patient seizure and gave recommendations due to his remote history of seizure in 2013 we should start antiseizure medications. Keppra 500 mg twice daily was started. EEG ordered for this week and she will follow up with patient on Saturday, December 16. Patient is aware of this and is agreeable to the following testing as well as new medication. He was notified due to seizure activity he is unable to drive until cleared by Dr. Teran or at least for 3 to 6 months per [place] state law. During his seizure he did hit his right shoulder and has shoulder pain. X-rays were obtained which showed no osseous fracture or obvious deformity to right shoulder. Patient having weakness on abducting shoulder but is able to move it with some pain. Patient will be given sling follow-up with primary care. He may need to have MRI to further evaluate musculoskeletal injury. He he was also educated on safety precautions to take with seizures including no swimming and no climbing ladders or being up high. Patient verbalized understanding. He is to follow-up with PCP in 1 week he will have follow-up with Dr. Teran the end of this week and have cardiology follow-up when available. He is to return to the ER clinic sooner if concerns should arise. - Patient Instructions Diet: Regular Diet as Tolerated Activity: As Tolerated Driving: Do Not Drive (No driving until cleared by Dr Teran) Showering/Bathing: May Shower Notify Provider of: Fever, Increased Pain, Swelling and Redness, Drainage, Nausea and/or Vomiting Other/Special Instructions: Sling to R upper extremity, ice and tylenol PRN - Discharge Plan *PRESCRIPTION DRUG MONITORING PROGRAM REVIEWED*: Not Applicable *COPY OF PRESCRIPTION DRUG MONITORING REPORT IN PATIENT YESSY: Not Applicable Prescriptions/Med Rec: Alc/Diph/Lido/Mag Hydrox/Smc [First-Mouthwash BLM] 10 ml PO QID PRN #225 bottle PRN Reason: mouth sore levETIRAcetam [Keppra] 500 mg PO BID #60 tablet Home Medications: Home Meds Ascorbic Acid [Vitamin C] 1,000 mg PO DAILY 03/16/15 [History] Aspirin [[place] Aspirin EC] 81 mg PO DAILY 03/16/15 [History] Cyanocobalamin (Vitamin B12) [Vitamin B12] 1,000 mcg PO DAILY 03/16/15 [History] Fish Oil/[place]-3 Fatty Acids [Fish Oil 1,000 MG] 1,200 mg PO BID 03/16/15 [History] Folic Acid 800 mcg PO DAILY 03/16/15 [History] Lisinopril 10 mg PO DAILY 03/16/15 [History] Multivitamin [Multivitamins] 1 tab PO DAILY 03/16/15 [History] Sertraline HCl 100 mg PO DAILY 03/16/15 [History] Simvastatin [Zocor] 20 mg PO BEDTIME 03/16/15 [History] Vitamin E 400 units PO DAILY 03/16/15 [History] Vitamin B6-pyridOXINE 100 mg PO DAILY 11/27/18 [History] Alc/Diph/Lido/Mag Hydrox/Smc [First-Mouthwash BLM] 10 ml PO QID PRN #225 bottle 12/13/20 [Rx] levETIRAcetam [Keppra] 500 mg PO BID #60 tablet 12/13/20 [Rx] Oxygen Therapy Mode: Room Air Referrals: Steve Ray MD [Physician] - Ivanna Ang NP [Nurse Practitioner] - 12/19/20 9:45 am (*Dr. Murphy is out of office for next 6 weeks*) Nunu Teran MD [Physician] - - Discharge Summary/Plan Comment DC Time >30 min.: Yes (Organizing follow-up with EEG, to monitor and PCP.) - Patient Data Vitals - Most Recent: Last Vital Signs Temp 98.5 F 12/13/20 12:00 Pulse 78 12/12/20 17:44 Resp 22 H 12/13/20 12:00 BP 132/76 12/13/20 12:00 Pulse Ox 96 12/13/20 12:00 Weight - Most Recent: 97.069 kg I&O - Last 24 hours: Intake & Output 12/12/20 12/13/20 12/13/20 22:59 06:59 14:59 Intake Total 1050 Output Total 1400 Balance -350 Lab Results - Last 24 hrs: Laboratory Results - last 24 hr 12/12/20 12/12/20 12/12/20 Range/Units 15:10 15:10 15:10 WBC 11.24 H (4.0-11.0) K/uL RBC 4.78 (4.50-5.90) M/uL Hgb 14.8 (13.0-17.0) g/dL Hct 44.4 (38.0-50.0) % MCV 92.9 (80.0-98.0) fL MCH 31.0 (27.0-32.0) pg MCHC 33.3 (31.0-37.0) g/dL RDW Std Deviation 50.3 (28.0-62.0) fl RDW Coeff of Kiana 15 (11.0-15.0) % Plt Count 188 (150-400) K/uL MPV 10.90 (7.40-12.00) fL Neut % (Auto) 53.6 (48.0-80.0) % Lymph % (Auto) 35.9 (16.0-40.0) % Grant % (Auto) 6.8 (0.0-15.0) % Eos % (Auto) 3.2 (0.0-7.0) % Baso % (Auto) 0.5 (0.0-1.5) % Neut # (Auto) 6.0 H (1.4-5.7) K/uL Lymph # (Auto) 4.0 H (0.6-2.4) K/uL Grant # (Auto) 0.8 (0.0-0.8) K/uL Eos # (Auto) 0.4 (0.0-0.7) K/uL Baso # (Auto) 0.1 (0.0-0.1) K/uL Nucleated RBC % 0.0 /100WBC Nucleated RBCs # 0 K/uL INR 1.00 APTT (18.6-31.3) SEC Lactate (0.20-2.00) mmol/L Sodium 148 (136-148) mmol/L Potassium 4.3 (3.5-5.1) mmol/L Chloride 107 (98-107) mmol/L Carbon Dioxide 18.9 L (21.0-32.0) mmol/L BUN 16 (7.0-18.0) mg/dL Creatinine 1.2 (0.8-1.3) mg/dL Est Cr Clr Drug Dosing TNP Estimated GFR (MDRD) 59.9 ml/min Glucose 185 H (74-106) mg/dL Calcium 9.3 (8.5-10.1) mg/dL Phosphorus (2.6-4.7) mg/dL Magnesium (1.8-2.4) mg/dL Total Bilirubin 0.6 (0.2-1.0) mg/dL AST 26 (15-37) IU/L ALT 34 (14-63) IU/L Alkaline Phosphatase 102 (46-116) U/L Troponin I < 0.050 (0.000-0.056) ng/mL Total Protein 7.8 (6.4-8.2) g/dL Albumin 3.8 (3.4-5.0) g/dL Globulin 4.0 (2.6-4.0) g/dL Albumin/Globulin Ratio 0.9 (0.9-1.6) TSH 3rd Generation 8.50 H (0.36-3.74) uIU/mL Urine Color Urine Appearance Urine pH (5.0-8.0) Ur Specific [place] (1.001-1.035) Urine Protein (NEGATIVE) mg/dL Urine Glucose (UA) (NEGATIVE) mg/dL Urine Ketones (NEGATIVE) mg/dL Urine Occult Blood (NEGATIVE) Urine Nitrite (NEGATIVE) Urine Bilirubin (NEGATIVE) Urine Urobilinogen (<2.0) EU/dL Ur Leukocyte Esterase (NEGATIVE) Urine Opiates Screen (NEGATIVE) Ur Oxycodone Screen (NEGATIVE) Urine Methadone Screen (NEGATIVE) Ur Barbiturates Screen (NEGATIVE) Ur Phencyclidine Scrn (NEGATIVE) Ur Amphetamine Screen (NEGATIVE) U Methamphetamines Scrn (NEGATIVE) U Benzodiazepines Scrn (NEGATIVE) U Cocaine Metab Screen (NEGATIVE) U Marijuana (THC) Screen (NEGATIVE) Ethyl Alcohol < 3.0 mg/dL Influenza Type A RNA (NEGATIVE) Influenza Type B RNA (NEGATIVE) SARS-CoV-2 RNA (SOFIYA) (NEGATIVE) 12/12/20 12/12/20 12/12/20 Range/Units 15:10 15:18 16:50 WBC (4.0-11.0) K/uL RBC (4.50-5.90) M/uL Hgb (13.0-17.0) g/dL Hct (38.0-50.0) % MCV (80.0-98.0) fL MCH (27.0-32.0) pg MCHC (31.0-37.0) g/dL RDW Std Deviation (28.0-62.0) fl RDW Coeff of Kiana (11.0-15.0) % Plt Count (150-400) K/uL MPV (7.40-12.00) fL Neut % (Auto) (48.0-80.0) % Lymph % (Auto) (16.0-40.0) % Grant % (Auto) (0.0-15.0) % Eos % (Auto) (0.0-7.0) % Baso % (Auto) (0.0-1.5) % Neut # (Auto) (1.4-5.7) K/uL Lymph # (Auto) (0.6-2.4) K/uL Grant # (Auto) (0.0-0.8) K/uL Eos # (Auto) (0.0-0.7) K/uL Baso # (Auto) (0.0-0.1) K/uL Nucleated RBC % /100WBC Nucleated RBCs # K/uL INR APTT 21.9 (18.6-31.3) SEC Lactate 12.0 H* (0.20-2.00) mmol/L Sodium (136-148) mmol/L Potassium (3.5-5.1) mmol/L Chloride (98-107) mmol/L Carbon Dioxide (21.0-32.0) mmol/L BUN (7.0-18.0) mg/dL Creatinine (0.8-1.3) mg/dL Est Cr Clr Drug Dosing Estimated GFR (MDRD) ml/min Glucose (74-106) mg/dL Calcium (8.5-10.1) mg/dL Phosphorus (2.6-4.7) mg/dL Magnesium (1.8-2.4) mg/dL Total Bilirubin (0.2-1.0) mg/dL AST (15-37) IU/L ALT (14-63) IU/L Alkaline Phosphatase (46-116) U/L Troponin I (0.000-0.056) ng/mL Total Protein (6.4-8.2) g/dL Albumin (3.4-5.0) g/dL Globulin (2.6-4.0) g/dL Albumin/Globulin Ratio (0.9-1.6) TSH 3rd Generation (0.36-3.74) uIU/mL Urine Color Urine Appearance Urine pH (5.0-8.0) Ur Specific [place] (1.001-1.035) Urine Protein (NEGATIVE) mg/dL Urine Glucose (UA) (NEGATIVE) mg/dL Urine Ketones (NEGATIVE) mg/dL Urine Occult Blood (NEGATIVE) Urine Nitrite (NEGATIVE) Urine Bilirubin (NEGATIVE) Urine Urobilinogen (<2.0) EU/dL Ur Leukocyte Esterase (NEGATIVE) Urine Opiates Screen (NEGATIVE) Ur Oxycodone Screen (NEGATIVE) Urine Methadone Screen (NEGATIVE) Ur Barbiturates Screen (NEGATIVE) Ur Phencyclidine Scrn (NEGATIVE) Ur Amphetamine Screen (NEGATIVE) U Methamphetamines Scrn (NEGATIVE) U Benzodiazepines Scrn (NEGATIVE) U Cocaine Metab Screen (NEGATIVE) U Marijuana (THC) Screen (NEGATIVE) Ethyl Alcohol mg/dL Influenza Type A RNA NEGATIVE (NEGATIVE) Influenza Type B RNA NEGATIVE (NEGATIVE) SARS-CoV-2 RNA (SOFIYA) NEGATIVE (NEGATIVE) 12/12/20 12/12/20 12/12/20 Range/Units 17:27 19:40 19:40 WBC (4.0-11.0) K/uL RBC (4.50-5.90) M/uL Hgb (13.0-17.0) g/dL Hct (38.0-50.0) % MCV (80.0-98.0) fL MCH (27.0-32.0) pg MCHC (31.0-37.0) g/dL RDW Std Deviation (28.0-62.0) fl RDW Coeff of Kiana (11.0-15.0) % Plt Count (150-400) K/uL MPV (7.40-12.00) fL Neut % (Auto) (48.0-80.0) % Lymph % (Auto) (16.0-40.0) % Grant % (Auto) (0.0-15.0) % Eos % (Auto) (0.0-7.0) % Baso % (Auto) (0.0-1.5) % Neut # (Auto) (1.4-5.7) K/uL Lymph # (Auto) (0.6-2.4) K/uL Grant # (Auto) (0.0-0.8) K/uL Eos # (Auto) (0.0-0.7) K/uL Baso # (Auto) (0.0-0.1) K/uL Nucleated RBC % /100WBC Nucleated RBCs # K/uL INR APTT (18.6-31.3) SEC Lactate 2.3 H* (0.20-2.00) mmol/L Sodium (136-148) mmol/L Potassium (3.5-5.1) mmol/L Chloride (98-107) mmol/L Carbon Dioxide (21.0-32.0) mmol/L BUN (7.0-18.0) mg/dL Creatinine (0.8-1.3) mg/dL Est Cr Clr Drug Dosing Estimated GFR (MDRD) ml/min Glucose (74-106) mg/dL Calcium (8.5-10.1) mg/dL Phosphorus (2.6-4.7) mg/dL Magnesium (1.8-2.4) mg/dL Total Bilirubin (0.2-1.0) mg/dL AST (15-37) IU/L ALT (14-63) IU/L Alkaline Phosphatase (46-116) U/L Troponin I (0.000-0.056) ng/mL Total Protein (6.4-8.2) g/dL Albumin (3.4-5.0) g/dL Globulin (2.6-4.0) g/dL Albumin/Globulin Ratio (0.9-1.6) TSH 3rd Generation (0.36-3.74) uIU/mL Urine Color YELLOW Urine Appearance CLEAR Urine pH 5.5 (5.0-8.0) Ur Specific [place] >= 1.030 (1.001-1.035) Urine Protein NEGATIVE (NEGATIVE) mg/dL Urine Glucose (UA) NEGATIVE (NEGATIVE) mg/dL Urine Ketones NEGATIVE (NEGATIVE) mg/dL Urine Occult Blood NEGATIVE (NEGATIVE) Urine Nitrite NEGATIVE (NEGATIVE) Urine Bilirubin NEGATIVE (NEGATIVE) Urine Urobilinogen 0.2 (<2.0) EU/dL Ur Leukocyte Esterase NEGATIVE (NEGATIVE) Urine Opiates Screen NEGATIVE (NEGATIVE) Ur Oxycodone Screen NEGATIVE (NEGATIVE) Urine Methadone Screen NEGATIVE (NEGATIVE) Ur Barbiturates Screen NEGATIVE (NEGATIVE) Ur Phencyclidine Scrn NEGATIVE (NEGATIVE) Ur Amphetamine Screen NEGATIVE (NEGATIVE) U Methamphetamines Scrn NEGATIVE (NEGATIVE) U Benzodiazepines Scrn NEGATIVE (NEGATIVE) U Cocaine Metab Screen NEGATIVE (NEGATIVE) U Marijuana (THC) Screen NEGATIVE (NEGATIVE) Ethyl Alcohol mg/dL Influenza Type A RNA (NEGATIVE) Influenza Type B RNA (NEGATIVE) SARS-CoV-2 RNA (SOFIYA) (NEGATIVE) 12/12/20 12/13/20 12/13/20 Range/Units 21:38 05:08 05:08 WBC 7.12 (4.0-11.0) K/uL RBC 3.97 L (4.50-5.90) M/uL Hgb 12.0 L (13.0-17.0) g/dL Hct 35.9 L (38.0-50.0) % MCV 90.4 (80.0-98.0) fL MCH 30.2 (27.0-32.0) pg MCHC 33.4 (31.0-37.0) g/dL RDW Std Deviation 49.1 (28.0-62.0) fl RDW Coeff of Kiana 15 (11.0-15.0) % Plt Count 144 L (150-400) K/uL MPV 10.30 (7.40-12.00) fL Neut % (Auto) 73.0 (48.0-80.0) % Lymph % (Auto) 16.4 (16.0-40.0) % Grant % (Auto) 6.7 (0.0-15.0) % Eos % (Auto) 3.5 (0.0-7.0) % Baso % (Auto) 0.4 (0.0-1.5) % Neut # (Auto) 5.2 (1.4-5.7) K/uL Lymph # (Auto) 1.2 (0.6-2.4) K/uL Grant # (Auto) 0.5 (0.0-0.8) K/uL Eos # (Auto) 0.3 (0.0-0.7) K/uL Baso # (Auto) 0.0 (0.0-0.1) K/uL Nucleated RBC % 0.0 /100WBC Nucleated RBCs # 0 K/uL INR APTT (18.6-31.3) SEC Lactate 1.8 (0.20-2.00) mmol/L Sodium 142 (136-148) mmol/L Potassium 4.3 (3.5-5.1) mmol/L Chloride 108 H (98-107) mmol/L Carbon Dioxide 24.9 (21.0-32.0) mmol/L BUN 12 (7.0-18.0) mg/dL Creatinine 1.0 (0.8-1.3) mg/dL Est Cr Clr Drug Dosing 66.50 Estimated GFR (MDRD) > 60.0 ml/min Glucose 132 H (74-106) mg/dL Calcium 8.0 L (8.5-10.1) mg/dL Phosphorus 3.3 (2.6-4.7) mg/dL Magnesium 1.7 L (1.8-2.4) mg/dL Total Bilirubin (0.2-1.0) mg/dL AST (15-37) IU/L ALT (14-63) IU/L Alkaline Phosphatase (46-116) U/L Troponin I (0.000-0.056) ng/mL Total Protein (6.4-8.2) g/dL Albumin (3.4-5.0) g/dL Globulin (2.6-4.0) g/dL Albumin/Globulin Ratio (0.9-1.6) TSH 3rd Generation (0.36-3.74) uIU/mL Urine Color Urine Appearance Urine pH (5.0-8.0) Ur Specific [place] (1.001-1.035) Urine Protein (NEGATIVE) mg/dL Urine Glucose (UA) (NEGATIVE) mg/dL Urine Ketones (NEGATIVE) mg/dL Urine Occult Blood (NEGATIVE) Urine Nitrite (NEGATIVE) Urine Bilirubin (NEGATIVE) Urine Urobilinogen (<2.0) EU/dL Ur Leukocyte Esterase (NEGATIVE) Urine Opiates Screen (NEGATIVE) Ur Oxycodone Screen (NEGATIVE) Urine Methadone Screen (NEGATIVE) Ur Barbiturates Screen (NEGATIVE) Ur Phencyclidine Scrn (NEGATIVE) Ur Amphetamine Screen (NEGATIVE) U Methamphetamines Scrn (NEGATIVE) U Benzodiazepines Scrn (NEGATIVE) U Cocaine Metab Screen (NEGATIVE) U Marijuana (THC) Screen (NEGATIVE) Ethyl Alcohol mg/dL Influenza Type A RNA (NEGATIVE) Influenza Type B RNA (NEGATIVE) SARS-CoV-2 RNA (SOFIYA) (NEGATIVE) 12/13/20 Range/Units 08:40 WBC (4.0-11.0) K/uL RBC (4.50-5.90) M/uL Hgb (13.0-17.0) g/dL Hct (38.0-50.0) % MCV (80.0-98.0) fL MCH (27.0-32.0) pg MCHC (31.0-37.0) g/dL RDW Std Deviation (28.0-62.0) fl RDW Coeff of Kiana (11.0-15.0) % Plt Count (150-400) K/uL MPV (7.40-12.00) fL Neut % (Auto) (48.0-80.0) % Lymph % (Auto) (16.0-40.0) % Grant % (Auto) (0.0-15.0) % Eos % (Auto) (0.0-7.0) % Baso % (Auto) (0.0-1.5) % Neut # (Auto) (1.4-5.7) K/uL Lymph # (Auto) (0.6-2.4) K/uL Grant # (Auto) (0.0-0.8) K/uL Eos # (Auto) (0.0-0.7) K/uL Baso # (Auto) (0.0-0.1) K/uL Nucleated RBC % /100WBC Nucleated RBCs # K/uL INR APTT (18.6-31.3) SEC Lactate (0.20-2.00) mmol/L Sodium (136-148) mmol/L Potassium (3.5-5.1) mmol/L Chloride (98-107) mmol/L Carbon Dioxide (21.0-32.0) mmol/L BUN (7.0-18.0) mg/dL Creatinine (0.8-1.3) mg/dL Est Cr Clr Drug Dosing Estimated GFR (MDRD) ml/min Glucose (74-106) mg/dL Calcium (8.5-10.1) mg/dL Phosphorus (2.6-4.7) mg/dL Magnesium (1.8-2.4) mg/dL Total Bilirubin (0.2-1.0) mg/dL AST (15-37) IU/L ALT (14-63) IU/L Alkaline Phosphatase (46-116) U/L Troponin I < 0.050 (0.000-0.056) ng/mL Total Protein (6.4-8.2) g/dL Albumin (3.4-5.0) g/dL Globulin (2.6-4.0) g/dL Albumin/Globulin Ratio (0.9-1.6) TSH 3rd Generation (0.36-3.74) uIU/mL Urine Color Urine Appearance Urine pH (5.0-8.0) Ur Specific [place] (1.001-1.035) Urine Protein (NEGATIVE) mg/dL Urine Glucose (UA) (NEGATIVE) mg/dL Urine Ketones (NEGATIVE) mg/dL Urine Occult Blood (NEGATIVE) Urine Nitrite (NEGATIVE) Urine Bilirubin (NEGATIVE) Urine Urobilinogen (<2.0) EU/dL Ur Leukocyte Esterase (NEGATIVE) Urine Opiates Screen (NEGATIVE) Ur Oxycodone Screen (NEGATIVE) Urine Methadone Screen (NEGATIVE) Ur Barbiturates Screen (NEGATIVE) Ur Phencyclidine Scrn (NEGATIVE) Ur Amphetamine Screen (NEGATIVE) U Methamphetamines Scrn (NEGATIVE) U Benzodiazepines Scrn (NEGATIVE) U Cocaine Metab Screen (NEGATIVE) U Marijuana (THC) Screen (NEGATIVE) Ethyl Alcohol mg/dL Influenza Type A RNA (NEGATIVE) Influenza Type B RNA (NEGATIVE) SARS-CoV-2 RNA (SOFIYA) (NEGATIVE) Med Orders - Current: Current Medications Acetaminophen (Acetaminophen 325 Mg Tab) 650 mg PO Q4H PRN PRN Reason: Pain (Mild 1-3)/fever Last Admin: 12/12/20 21:20 Dose: 650 mg Documented by: Albuterol/Ipratropium (Albuterol/Ipratropium 3.0-0.5 Mg/3 Ml Neb Soln) 3 ml NEB Q4HRRT PRN PRN Reason: Shortness Of Breath/wheezing Aspirin (Aspirin 81 Mg Tab.Ec) 81 mg PO DAILY [facility] Last Admin: 12/13/20 08:56 Dose: 81 mg Documented by: Diphenhydr/Magaldrate/Simeth/Lidoca (Al And Mag Hydroxide/Diphenhydramine/Lidocaine/Simethicone 237 Ml Bottle) 10 ml PO QID [facility] Last Admin: 12/13/20 12:59 Dose: 10 ml Documented by: Lactated Ringer's (Ringers, Lactated) 1,000 mls @ 125 mls/hr IV ASDIRECTED [facility] Last Admin: 12/13/20 05:55 Dose: 125 mls/hr Documented by: Levetiracetam (Levetiracetam 500 Mg Tab) 500 mg PO BID [facility] Last Admin: 12/13/20 13:00 Dose: 500 mg Documented by: Lisinopril (Lisinopril 10 Mg Tab) 10 mg PO DAILY [facility] Last Admin: 12/13/20 08:56 Dose: 10 mg Documented by: Lorazepam (Lorazepam 2 Mg/Ml Sdv) 2 mg IVPUSH Q1H PRN PRN Reason: Seizures Ondansetron HCl (Ondansetron 4 Mg/2 Ml Sdv) 4 mg IVPUSH Q4H PRN PRN Reason: Nausea/Vomiting Sertraline HCl (Sertraline 100 Mg Tab) 100 mg PO DAILY [facility] Last Admin: 12/13/20 08:56 Dose: 100 mg Documented by: Simvastatin (Simvastatin 20 Mg Tab) 20 mg PO BEDTIME [facility] Sodium Chloride (Sodium Chloride 0.9% 10 Ml Syringe) 10 ml FLUSH ASDIRECTED PRN PRN Reason: Keep Vein Open Last Admin: 12/12/20 15:40 Dose: 10 ml Documented by: Sodium Chloride (Sodium Chloride 0.9% 2.5 Ml Syringe) 2.5 ml FLUSH ASDIRECTED PRN PRN Reason: Keep Vein Open Last Admin: 12/12/20 15:40 Dose: 2.5 ml Documented by: Sodium Chloride (Sodium Chloride 0.9% 10 Ml Sdv) 10 ml IV ASDIRECTED PRN PRN Reason: IV Use Discontinued Medications Gadobenate Dimeglumine (Gadobenate Dimeglumine 529 Mg/Ml 20 Ml Sdv) 20 ml I VPUSH ONETIME STA Stop: 12/13/20 11:19 Last Admin: 12/13/20 11:19 Dose: 20 ml Documented by: Sodium Chloride (Normal Saline) 1,000 mls @ 999 mls/hr IV STAT ONE Stop: 12/12/20 16:18 Last Admin: 12/12/20 15:40 Dose: 999 mls/hr Documented by: Sodium Chloride (Normal Saline) 1,000 mls @ 999 mls/hr IV .Bolus ONE Stop: 12/12/20 17:06 Last Admin: 12/12/20 16:09 Dose: 999 mls/hr Documented by: Magnesium Sulfate (Magnesium Sulfate In Water 2 Gm/50 Ml) 2 gm in 50 mls @ 50 mls/hr IV ONETIME ONE Stop: 12/13/20 09:00 Last Admin: 12/13/20 08:56 Dose: 50 mls/hr Documented by: Lorazepam (Lorazepam 2 Mg/Ml Sdv) 2 mg IVPUSH ONETIME ONE Stop: 12/12/20 15:19 Last Admin: 12/12/20 15:12 Dose: 2 mg Documented by: Lorazepam (Lorazepam 2 Mg/Ml Sdv) 2 mg IVPUSH ONETIME ONE Stop: 12/12/20 15:23 Last Admin: 12/12/20 15:14 Dose: 2 mg Documented by: - Exam General: Reports: Alert, Oriented, Cooperative, No Acute Distress Lungs: Reports: Clear to Auscultation, Normal Respiratory Effort Cardiovascular: Reports: Regular Rate, Regular Rhythm GI/Abdominal Exam: Normal Bowel Sounds, Soft, Non-Tender Back Exam: Reports: Normal Inspection, Full Range of Motion Extremities: Normal Inspection, Arm Pain (Right shoulder) Wound/Incisions: Reports: Healing Well Neurological: Reports: No New Focal Deficit Psy/Mental Status: Reports: Alert, Normal Affect, Normal Mood
[2020-12-13] MEDS: Acetaminophen 325 MG Tab PO PRN (14:25)
[2020-12-13] MEDS ORDERED: Heparin Sodium 5,000 Units/ML Vial IVPUSH ONE (16:14)
[2020-12-13] MEDS ORDERED: Heparin Sodium/0.45% NaCl 500 ML IV SCH (16:15)
[2020-12-13 19:13] VITALS: BP 118/54
[2020-12-13] MEDS ORDERED: Simvastatin 20 MG Tab PO SCH (21:00)
--- NOTE | 2020-12-15 17:56 | ECHO ---
EXAM DATE: 12/12/20 PATIENT'S AGE: 70 The ECHO report has been scanned into [employer] and can be seen in this patient's EMR (Electronic Medical Record) under the REPORTS section. The report has also been scanned into PACS. [facility]BO
== END 2020-12-13 17:50 ==
LOC: MW.ED 15:10 → MW.ICU 17:54
PROVIDERS: ADMIT Student in an Organized Health Care Education/Training Program; ATTEND Student in an Organized Health Care Education/Training Program
DX: R56.9 Unspecified convulsions (principal); I10 Essential (primary) hypertension; E78.5 Hyperlipidemia, unspecified; E66.9 Obesity, unspecified; E78.00 Pure hypercholesterolemia, unspecified; K40.90 Unilateral inguinal hernia, without obstruction or gangrene, not specified as recurrent; E87.2 Acidosis; I44.7 Left bundle-branch block, unspecified; M25.511 Pain in right shoulder; Z20.822 Contact with and (suspected) exposure to COVID-19; Z79.899 Other long term (current) drug therapy; Z79.82 Long term (current) use of aspirin; Z98.890 Other specified postprocedural states
CPT/HCPCS: 0240U; 36415; 70450; 70553; 71045; 73030; 80048; 80053; 80305; 80307; 81003; 82947; 83605; 83735; 84100; 84443; 84484; 85025; 85610; 85730; 93005; 93306; 96374; 99285; A9270; A9577; J1644; J2060; J3475; J7030; J7120; 93010; 96375; 99284; G0378

== ENCOUNTER 2022-11-15 09:47 | Emergency (ER) | payer MEDICARE ==
[2022-11-15 10:01] VITALS: BP 107/68; PULSE 63
== END 2022-11-15 11:36 | disposition home or self-care (01) ==
LOC: MW.ED 09:47
DX: S83.411A Sprain of medial collateral ligament of right knee, initial encounter (principal); E78.00 Pure hypercholesterolemia, unspecified; I10 Essential (primary) hypertension; M19.90 Unspecified osteoarthritis, unspecified site; E66.9 Obesity, unspecified; Z68.32 Body mass index [BMI] 32.0-32.9, adult; Z86.16 Personal history of COVID-19; Z79.82 Long term (current) use of aspirin; Z79.899 Other long term (current) drug therapy
CPT/HCPCS: 73562-26-RT; 73562-RT; 99283

== ENCOUNTER 2023-09-30 09:03 | Emergency (ER) | payer MEDICARE ==
[2023-09-30 09:26] VITALS: PULSE 61
[2023-09-30] MEDS ORDERED: Ibuprofen 600 MG Tab PO ONE (10:57)
[2023-09-30 10:58] VITALS: BP 116/57
[2023-09-30] MEDS: Ibuprofen 600 MG Tab PO ONE (11:02)
== END 2023-09-30 11:07 | disposition home or self-care (01) ==
LOC: MW.ED 09:03
DX: S40.011A Contusion of right shoulder, initial encounter (principal); S29.9XXA Unspecified injury of thorax, initial encounter; I10 Essential (primary) hypertension; E66.9 Obesity, unspecified; E78.00 Pure hypercholesterolemia, unspecified; Z79.82 Long term (current) use of aspirin; Z79.899 Other long term (current) drug therapy; Z86.16 Personal history of COVID-19; Z68.33 Body mass index [BMI] 33.0-33.9, adult; W22.8XXA Striking against or struck by other objects, initial encounter
CPT/HCPCS: 71046; 73030; 99283; A9270